=== PATIENT | male | born 1940 | race Caucasian/White ===

== ENCOUNTER 2018-10-12 10:20 | Outpatient (REF) | payer MEDICARE, SELFPAY ==
[2018-10-12 19:49] LABS: HCT 40.2 % (40.0-50.0); HGB 13.2 g/dL (13.5-17.5); Mean Corp. HGB Concentration 32.8 g/dL (32.0-36.0); Mean Corpuscular Hemoglobin 31.9 pg (27.0-33.0); Mean Corpuscular Volume 97.1 fL (80-95); Mean Platelet Volume 11.8 fL (8.0-11.0); Platelet Count 175 x1000/uL (130-400); RBC 4.14 m/cumm (4.50-6.00); RBC Distribution Width 13.1 % (11.8-14.1)
[2018-10-12 20:07] LABS: ALT 18 U/L (12-78); AST 22 U/L (15-37); Albumin 3.6 g/dL (3.4-5.0); Alkaline Phosphatase 70 U/L (46-116); Anion Gap 10.7 mmol/L (3-11); BUN 23 mg/dL (7-18); Bilirubin, Total 0.4 mg/dL (0.2-1.0); CO2 25.3 mmol/L (21.0-32.0); CREATININE 0.82 mg/dL (0.70-1.30); Calcium 9.6 mg/dL (8.5-10.1); Chloride 103 mmol/L (98-107); Glucose 116 mg/dL (70-100); Potassium 4.5 mmol/L (3.5-5.1); Sodium 139 mmol/L (136-145); Total Protein 7.1 g/dL (6.4-8.2)
== END 2018-10-12 10:40 ==
LOC: NCHCN 10:20
PROVIDERS: PCP Family Medicine; Visit Provider Family Medicine
DX: I48.91 Unspecified atrial fibrillation (principal); D64.9 Anemia, unspecified; I10 Essential (primary) hypertension; E78.5 Hyperlipidemia, unspecified
CPT/HCPCS: 80053; 85027

== ENCOUNTER 2018-11-27 14:21 | Emergency (ER) | payer MEDICARE, SELFPAY ==
[2018-11-27 14:24] VITALS: BP 170/90; PULSE 66; RESP 18; TEMP 36.3; O2SAT 98
--- NOTE | 2018-11-27 15:13 | DI.RAD_ITS ---
SYMPTOM/DIAGNOSIS: FELL, RIB AND CHEST PAIN, ELBOW PAIN PA AND LATERAL CHEST: Comparison is made with 11/15/17. The heart is enlarged. There is a hiatal hernia present. The pulmonary vasculature is within normal limits. There does appear to be plate atelectasis in the left lung base. No gross effusions or pneumothoraces are identified. No definite rib fractures are seen. Degenerative changes are seen in the spine. IMPRESSION: Atelectasis in the left lung base. Cardiomegaly. LEFT ELBOW: Multiple views. No definite acute fracture or dislocation is identified. There is a tiny osseous fragment seen at the olecranon which may represent calcified tendinitis or an old avulsed fracture fragment. There is an osteophyte seen at the coronoid process. There is a joint effusion and an occult fracture cannot be excluded. IMPRESSION: No definite acute fracture or dislocation. Joint effusion. Occult fracture cannot be excluded. Follow up as clinically appropriate.
--- NOTE | 2018-11-27 15:15 | W.ED.GENAD ---
Discharge Plan Disposition Patient Disposition: HOME Discharge Details Chief Complaint: Orthopedic Clinical Impression: Closed fracture of radial head, Renal cyst, Aortic aneurysm, Contusion of lung, Opacity of lung on imaging study Primary Care Provider: Oralia King V ED Provider: Javan Kay Home Meds and New Rx's Prescriptions: New lidocaine 5 % adhesive patch,medicated 1 patch TP DAILY PRN (Reason: rib pain) Qty: 15 RF: 0 Continued simvastatin [Zocor] 40 MG tablet 40 mg PO HS Qty: 1 RF: 0 triamcinolone acetonide 80 GM ointment 80 gm Topical TID RF: 0 losartan [Cozaar] 100 MG tablet 100 mg PO DAILY Qty: 1 RF: 0 albuterol sulfate 8.5 GM HFA aerosol inhaler 8.5 gm Inhalation Q4H PRN PRNQty: 1 RF: 1 potassium chloride [Klor-Con M20] 20 MEQ tablet,ER particles/crystals 20 meq PO DAILY Qty: 30 RF: 0 omeprazole 40 MG capsule,delayed release(DR/EC) 40 mg PO BID RF: 0 No Action Eliquis 5 MG tablet 5 mg PO BID Qty: 60 RF: 0 Discharge Instructions Instructions: Elbow Fracture in Adults (ED), Abdominal Aortic Aneurysm (GEN), Pulmonary Contusion (ED) Additional Instructions: Use incentive spirometer every 2 hours while awake for the next 1 week. Should you develop fever and/or cough, please return to the ER or see your doctor immediately. Please follow-up with your doctor regarding abnormalities seen on CT including pulmonary opacity and AAA. Hold eliquis dosing tonight. You can start taking eliquis again tomorrow. Return to the ER for any worsening or new concerning symptoms. Referrals: Oralia King MD [Primary Care Provider] - Feroz Gomez MD [ [facility] STAFF PHYSICIAN] - Medical Decision Making 15:22 --78-year-old male here after mechanical slip and fall on ice with injury to his left elbow and left anterior lateral ribs. Tender to palpation lateral elbow and over fourth rib anterolaterally. Saturating well and no respiratory distress. Concern for elbow fracture vs contusion. Concern for rib fracture vs contusion. Plan to xray. Lidocaine patch and tylenol administered for pain. 16:19 --chest x-ray interpreted by radiology: IMPRESSION: 1. Opacity in the left costophrenic angle and retrocardiac region may represent atelectasis or pneumonia or contusion. 2. There may be mild left pleural effusion. Consider pulmonary contusion versus rib fracture and vascular injury, patient is on Eliquis, plan to CT chest. Elbow x-ray interpreted by radiology: Impression: 1. Mild anterior joint effusion. 2. There may be nondisplaced intra-articular fracture of the radial head. 18:38 -- CT of chest intpereted by radiology: IMPRESSION: 1. Mild opacities in the lower lobes may represent minimal atelectasis or pneumonia or contusion. 2. Infrarenal abdominal aortic aneurysm unruptured 3.1 x 2.9 cm. 3. 2.1 x 1.4 cm Pleural-based opacity in the medial aspect of the right lower lobe (2:39) may represent atelectasis or pneumonia or tumor. 4. Mild compression fracture of unknown age T2. Results were reviewed with the patient. I again questioned patient about infectious symptoms recent and he denies recent cough or fever. Spoke with Dr. Gomez who recommends sling, no weight bearing, and follow-up. Plan to sling. Follow-up ortho as well as follow-up with primary care physician regarding findings on CT chest. HPI General Mode of arrival: ambulatory. Date/Time Provider Initiated Documentation: 11/27/18 14:30. Information obtained by: patient and family. 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 Patient notes he landed on his left side. He has pain in left lateral ribs over fourth rib. Pain is moderate and worse on deep inspiration and on palpation. No associated shortness of breath. Patient also notes that he injured his left elbow during the fall and has pain in his elbow at its worse when he moves his elbow. Patient denies head trauma. No neck injury or pain Patient does state that he has minimal pain in his left anterior lateral pelvis but does not believe he sustained significant injury in that area. Related Data Home Medications Medication Instructions Recorded Confirmed losartan [Cozaar] 100 mg PO DAILY #1 tab-cap 05/26/13 11/27/18 simvastatin [Zocor] 40 mg PO HS #1 05/26/13 11/27/18 triamcinolone acetonide 80 gm TOPICAL TID script 05/26/13 11/27/18 albuterol sulfate 8.5 gm INHALATION Q4H PRN PRN #1 03/14/15 11/27/18 [email or web address] Eliquis 5 mg PO BID #60 tab 11/17/17 11/27/18 potassium chloride [Klor-Con M20] 20 meq PO DAILY #30 tabcr 11/17/17 11/27/18 omeprazole 40 mg PO BID 12/25/17 11/27/18 lidocaine 1 patch TP DAILY PRN #15 each 11/27/18 Previous Rx's Medication Instructions Recorded albuterol sulfate 8.5 gm INHALATION Q4H PRN PRN #1 03/14/15 [email or web address] Eliquis 5 mg PO BID #60 tab 11/17/17 potassium chloride [Klor-Con M20] 20 meq PO DAILY #30 tabcr 11/17/17 lidocaine 1 patch TP DAILY PRN #15 each 11/27/18 Allergies Allergy/AdvReac Type Severity Reaction Status Date / Time lactose Allergy Swelling/Ed Unverified 11/27/18 14:24 juan pablo General Stated Complaint: Orthopedic KATHERINE: 4 Review of Systems Cardiovascular Reports as per HPI and Denies dyspnea Respiratory Reports as per HPI and Denies dyspnea Gastrointestinal Denies abdominal pain Musculoskeletal Reports as per HPI PFSH Medical History Benign hypertension Deaf Epiglottitis Hypercholesterolemia Peripheral vascular disease occluded carotid artery Surgical History ORIF of supercondylar fx of the R femur (05/25/88) Right carotid endarterectomy ear surgery removal of compression screw and side plate from right femur (09/16/91) Social History Smoking/Tobacco Use Status: Never Alcohol Intake: never Drug use: Never Substance use type: does not use Do you feel safe at home: Yes Do you feel safe in your relationship?: Yes Exam Const General: cooperative and no acute distress HENMT Head: normocephalic and atraumatic Mouth: moist mucous membranes Neck Neck: full ROM, trachea midline, supple and nontender Chest Chest: no crepitus, localized rib tenderness with anteroposterior compression (left 4th lateral) and tenderness rib (4th and 5th left) Resp Auscultation: clear to auscultation bilaterally, no rales, no rhonchi and no wheezes Cardio Jugular venous pressure: no JVD Rate: regular rate and not tachycardic Rhythm: regular rhythm Pulses: radial pulses present on the left 2+ GI Palpation: soft, not firm, no guarding, no masses, not rigid and nontender Back/Spine/Pelvis Cervical Spine: No cervical spinal tenderness Pelvis: no pain with anterior-posterior compression and no pain with lateral compression Skin General skin exam: no rashes or lesions noted Neuro General: alert, awake and tone normal Motor: muscle tone normal throughout Sensory Exam: no sensory deficits noted (distal LUE) Extrem General: no edema Left upper extremity: elbow/forearm Details: tenderness Location: of the radial head and abnormal ROM Details: pain with active ROM Details: with extension and with supination; no swelling Left lower extremity: hip/thigh Details: normal ROM and abnormal ROM; no tenderness Psych Appearance: grossly normal Course Vital Signs Temperature 36.3 C L 11/27/18 14:24 Pulse 66 11/27/18 14:24 Respiratory Rate 18 11/27/18 14:24 Blood Pressure 170/90 H 11/27/18 14:24 Pulse Oximetry 98 11/27/18 14:24 Temperature 36.3 C L 11/27/18 14:24 Temperature Source Temporal Artery Scan 11/27/18 14:24 Pulse 66 11/27/18 14:24 Respiratory Rate 18 11/27/18 14:24 Respiratory Effort 11/27/18 14:24 Blood Pressure 170/90 H 11/27/18 14:24 Pulse Oximetry 98 11/27/18 14:24 Oxygen Delivery Method Room Air 11/27/18 14:24 Oxygen Flow Rate 0 11/27/18 14:24 Pain Level 1 11/27/18 14:24
[2018-11-27] MEDS: Acetaminophen 325 MG TAB 650 MG PO (15:26)
[2018-11-27] MEDS: Lidocaine 5% Patch 1 PATCH (15:27)
--- NOTE | 2018-11-27 16:08 | DI.VRAD_ITS ---
EXAM: XR Chest, 2 Views EXAM DATE/TIME: 11/27/2018 3:15 PM CLINICAL HISTORY: 78 years old, male; Signs and symptoms; Other: Fall, left ant lateral cp 4-5th ribs TECHNIQUE: XR of the chest, 2 views. COMPARISON: CR CHEST 2 VIEWS PA,LAT 11/15/2017 2:29 PM FINDINGS: Lungs: Opacity in the left costophrenic angle and retrocardiac region may represent atelectasis or pneumonia or contusion. Pleural space: There may be mild left pleural effusion. Heart/Mediastinum: Cardiomegaly Vasculature: Tortuous aorta Bones/joints: No definite rib fracture. IMPRESSION: 1. Opacity in the left costophrenic angle and retrocardiac region may represent atelectasis or pneumonia or contusion. 2. There may be mild left pleural effusion. Dictated and Authenticated by: Pb Guadalupe MD. Ordering:ROGE Edouard MD
--- NOTE | 2018-11-27 16:10 | DI.VRAD_ITS ---
EXAM: XR Left Elbow Complete, 3 or more Views EXAM DATE/TIME: 11/27/2018 3:15 PM CLINICAL HISTORY: 78 years old, male; Signs and symptoms; Other: Fall, pain TECHNIQUE: XR Left elbow, 3 or more views. COMPARISON: No relevant prior studies available. FINDINGS: Bones/joints: Well-corticated old avulsion fracture adjacent to the olecranon Osteophyte formation on the coronoid process Mild anterior joint effusion. There may be nondisplaced intra-articular fracture of the radial head. Soft tissues: Normal. IMPRESSION: 1. Mild anterior joint effusion. 2. There may be nondisplaced intra-articular fracture of the radial head. Dictated and Authenticated by: Pb Guadalupe MD. Ordering:ROGE Edouard MD
[2018-11-27 16:33] LABS: Abs Immature Grans 0.05 k/cumm (0.0-0.09); Absolute Basophil Count 0.01 k/cumm (0.0-0.2); Absolute Monocyte Count 0.47 k/cumm (0.11-0.7); Basophils % 0.1; Eosinophils % 0.1; HCT 43.6 % (40.0-50.0); HGB 14.3 g/dL (13.5-17.5); Immature Grans % 0.3; Lymphocytes % 5.6; Mean Corp. HGB Concentration 32.8 g/dL (32.0-36.0); Mean Corpuscular Hemoglobin 31.8 pg (27.0-33.0); Mean Corpuscular Volume 97.1 fL (80-95); Mean Platelet Volume 10.3 fL (8.0-11.0); Monocytes % 3.3; Neutrophils % 90.6; Platelet Count 172 x1000/uL (130-400); RBC 4.49 m/cumm (4.50-6.00); RBC Distribution Width 12.8 % (11.8-14.1); White Blood Cell Count 14.34 k/cumm (4.4-10.8)
[2018-11-27 16:34] LABS: Absolute Eosinophil Count 0.01 k/cumm (0.0-0.7); Absolute Neutrophil Count 12.99 k/cumm (1.2-6.7)
[2018-11-27 16:45] LABS: Anion Gap 8.3 mmol/L (3-11); BUN 24 mg/dL (7-18); CO2 28.7 mmol/L (21.0-32.0); CREATININE 0.85 mg/dL (0.70-1.30); Calcium 9.4 mg/dL (8.5-10.1); Chloride 100 mmol/L (98-107); Glucose 122 mg/dL (70-100); Sodium 137 mmol/L (136-145)
[2018-11-27] MEDS: Omnipaque 350 MG/ML 100 ML BTL IJ (17:11)
[2018-11-27] MEDS: Normal Saline Flush 10 ML SYR IVP (17:11)
--- NOTE | 2018-11-27 17:15 | DI.CT_ITS ---
SYMPTOM/DIAGNOSIS: FELL, LT HCEST PAIN, OPACITY ON XR CHEST CT: CT scan of the chest was performed following the uneventful administration of intravenous contrast material. Comparison is chest xray from the same day. The thoracic aorta shows atherosclerosis but is intact. Heart size is upper limits of normal to mildly enlarged. Coronary artery calcifications are present. There is no significant pericardial effusion. No significant thoracic adenopathy is seen. No pleural effusion or pneumothorax is identified. There is a moderate sized hiatal hernia. There are infiltrates seen in the lung bases bilaterally. These may represent atelectasis or pneumonia. There is a focal opacity in the medial aspect of the right lower lobe. This may represent atelectasis or pneumonia. A mass cannot be excluded. Follow up as appropriate. There are nondisplaced fractures involving the lateral aspects of the left fourth, fifth and sixth ribs. There are calcified pleural plaques present which may reflect prior asbestos exposure. In the upper abdomen, there is a 4 cm. right renal cyst. There is a 3.1 by 2.9 cm. infrarenal abdominal aortic aneurysm. There is compression deforming of the superior endplate of T 2. Note is made of gynecomastia on the left. IMPRESSION: 1. Nondisplaced fractures involving the left fourth, fifth and sixth ribs laterally. 2. No evidence of a pneumothorax or pleural effusion. 3. Bilateral opacities in the lung bases which may represent atelectasis or pneumonia. 4. 2.1 by 1.4 cm. pleural based opacity in the medial aspect of the right lower lobe. This may represent atelectasis or pneumonia. Neoplasm cannot be excluded. Follow up as appropriate. 5. 3.1 by 2.9 cm. infrarenal abdominal aortic aneurysm. 6. T 2 compression fracture deformity which is indeterminate in age.
[2018-11-27 17:25] VITALS: BP 126/68; PULSE 69; TEMP 37.2; O2SAT 99
--- NOTE | 2018-11-27 17:27 | DI.VRAD_ITS ---
EXAM: CT Chest With Contrast EXAM DATE/TIME: 11/27/2018 4:19 PM CLINICAL HISTORY: 78 years old, male; Signs and symptoms; Other: Fall, left chest pain, opacity on cxr, on elliquis TECHNIQUE: Axial computed tomography images of the chest with intravenous contrast. All CT scans at this facility use at least one of these dose optimization techniques: automated exposure control; mA and/or kV adjustment per patient size (includes targeted exams where dose is matched to clinical indication); or iterative reconstruction. Coronal and sagittal reformatted images were created and reviewed. CONTRAST: Contrast Material: 70 ml of Omnipaque 350; Contrast Route: IV COMPARISON: CT CHEST FOR PULMONARY EMBOLUS 01/20/2016 7:19 PM FINDINGS: Lungs: Mild opacities in the lower lobes may represent minimal atelectasis or pneumonia or contusion. 2.1 x 1.4 cm Pleural-based opacity in the medial aspect of the right lower lobe (2:39) may represent atelectasis or pneumonia or tumor. Pleural space: Calcified pleural plaques may represent exposure to asbestos Heart: Coronary artery calcifications may indicate coronary artery disease Mediastinum: Moderate hiatal hernia Aorta: Infrarenal abdominal aortic aneurysm unruptured 3.1 x 2.9 cm. Lymph nodes: Unremarkable. No enlarged lymph nodes. Bones/joints: Mild compression fracture of unknown age T2. Soft tissues: Unremarkable. Kidneys and ureters: 4 cm cyst in the right kidney. Smaller cysts in the left kidney. IMPRESSION: 1. Mild opacities in the lower lobes may represent minimal atelectasis or pneumonia or contusion. 2. Infrarenal abdominal aortic aneurysm unruptured 3.1 x 2.9 cm. 3. 2.1 x 1.4 cm Pleural-based opacity in the medial aspect of the right lower lobe (2:39) may represent atelectasis or pneumonia or tumor. 4. Mild compression fracture of unknown age T2. Dictated and Authenticated by: Pb Guadalupe MD. Ordering:ROGE Edouard MD
[2018-11-27 19:04] VITALS: BP 146/70; PULSE 69; RESP 18; TEMP 37.2; O2SAT 99
--- NOTE | 2018-11-28 20:40 | W.ED.FU ---
Follow Up Plan: Received notice at approximately 8:30 PM Thursday night that radiology over read revealed left-sided fourth, fifth, sixth rib fractures. Called and patient's family stated he is doing well. They have plan follow-up in orthopedic clinic.
== END 2018-11-27 19:07 | disposition home or self-care (01) ==
PROVIDERS: Emergency Provider Student in an Organized Health Care Education/Training Program; PCP Family Medicine
DX: S52.122A Displaced fracture of head of left radius, initial encounter for closed fracture (principal); S27.321A Contusion of lung, unilateral, initial encounter; R91.8 Other nonspecific abnormal finding of lung field; I71.4 Abdominal aortic aneurysm, without rupture; N28.1 Cyst of kidney, acquired; I48.91 Unspecified atrial fibrillation; Z79.01 Long term (current) use of anticoagulants; W00.0XXA Fall on same level due to ice and snow, initial encounter
CPT/HCPCS: 36415; 80048; 99285; 71046; 71260; 73080; 85025; J3490; L3650

== ENCOUNTER 2020-08-22 16:02 | Inpatient (IN) | payer MEDICARE, SELFPAY ==
--- NOTE | 2020-08-22 16:15 | DI.RAD_ITS ---
EXAM: XR HIP LT COMPLETE AP PELVIS CLINICAL HISTORY: fall/pain. TECHNIQUE: 2D digital imaging was performed. COMPARISON: CR RIGHT HIP COMPLETE from 09/12/2012 FINDINGS: There is a mildly displaced fracture of the left femoral neck. No obvious fracture in the opposite-r ight hip. No prominent degenerative changes. No other pelvic fractures. IMPRESSION: Left femoral neck fracture. DATA REPOSITORY: RADIATION DOSE DELIVERED:
[2020-08-22 16:23] VITALS: BP 165/79; PULSE 61; TEMP 36.1; O2SAT 98
--- NOTE | 2020-08-22 16:32 | W.ED.GENAD ---
Discharge Plan Disposition Patient Disposition: [facility] INPATIENT Condition: Serious Discharge Details Clinical Impression: Fracture of femoral neck, left Primary Care Provider: Oralia King V ED Provider: Kelvin Shaffer Home Meds and New Rx's Prescriptions: No Action simvastatin [Zocor] 40 MG tablet 40 mg PO HS Qty: 1 RF: 0 triamcinolone acetonide 80 GM ointment 30 gm Topical TID PRNRF: 0 Eliquis 5 MG tablet 5 mg PO BID Qty: 60 RF: 0 omeprazole 40 MG capsule,delayed release(DR/EC) 40 mg PO BID RF: 0 ipratropium-albuterol 0.5 mg-3 mg(2.5 mg base)/3 mL Solution For Nebulization 3 ml INHALATION QID PRNRF: 0 triamcinolone acetonide [Aristocort] 0.1 % Ointment 1 applic TOPICAL TID RF: 0 losartan 100 mg Tablet 100 mg PO DAILY RF: 0 vitamin B complex [Vitamins B Complex] Capsule 1 cap PO DAILY RF: 0 potassium chloride [Klor-Con M20] 20 MEQ tablet,ER particles/crystals 10 meq PO DAILY RF: 0 albuterol sulfate [Ventolin HFA] 90 mcg/actuation Hfa Aerosol Inhaler See Rx Instructions .ROUTE .COMPLEX PRNRF: 0 Medical Decision Making 80-year-old gentleman, DNR, DNI, deaf-mute, atrial fibrillation, anticoagulated, presents with his POA after a fall that was mechanical in nature. Only complaint at this time is that of left hip pain. Patient appears well, nontoxic, no obvious head injury. Discussed with patient and POA that we certainly need to get an x-ray of the left hip and pelvis for further evaluation but given his fall, on anticoagulation, I do recommend a CT of the head. They are very adamant that he did not strike his head, no headache, LOC, etc. Did not want to move forward with a head CT. They do understand the risks of not obtaining head CT. X-ray of left hip read by me as a impacted fracture of the left femur neck. I was able to talk with our certified technician specialist and while the patient is at x-ray obtaine a 1 view chest x-ray, left femur, and head CT. Patient and POA agreeable to the studies now. When the patient returns from radiology department will obtain IV access, obtain labs, EKG, give IV pain medication, and discuss need for admission and surgery. I was able to discuss the case with Dr. Blancas, orthopedics. He plans to perform surgery on Thursday, would like to hold Eliquis or aspirin, and he will see the patient tomorrow morning. He recommends a admission to our hospitalist team with a orthopedic consultation I then discussed the case with our hospitalist, Dr. Mclean. He personally saw the patient here in the ER and is agreeable to admission. Medical Records Medical records reviewed: Yes I reviewed the patient's medical records. Imaging Data Radiologic Study: Attestation: I personally reviewed and interpreted this imaging study as follows: Imaging: X-Ray Radiologist's impression: X-ray of chest, read by radiology as cardiomegaly with vascular congestion. Radiologic Study #2: Attestation: I personally reviewed and interpreted this imaging study as follows: Imaging: X-Ray Radiologist's impression: X-ray of the left hip, pelvis, left femur read as impacted fracture of the neck of the left femur. Radiologic Study #3: Attestation: I personally reviewed and interpreted this imaging study as follows: Imaging: CT Scan Radiologist's impression: CT head read by radiology as no acute findings. Findings suggestive of chronic white matter small vessel ischemic change. Lab Data Lab results reviewed: Yes I reviewed the patient's lab results. Lab results narrative: Laboratory Tests Range/Units 08/22/20 08/22/20 18:30 18:30 WBC (4.4-10.8) 10^3/uL 13.91 H RBC (4.36-5.78) 10^6/uL 4.30 L Hgb (13.5-17.5) g/dL 13.5 Hct (40.0-50.0) % 41.6 MCV (80-95) fL 96.7 H MCH (27.0-33.0) pg 31.4 MCHC (32.0-36.0) % 32.5 RDW (11.8-14.1) % 12.2 Plt Count (130-400) 10^3/uL 184 MPV (8.0-11.0) fL 10.9 Immature Gran % 0.4 Neutrophils % 89.9 Lymphocytes % 6.3 Monocytes % 2.9 Eosinophils % 0.3 Basophils % 0.2 Nucleated RBC % % 0 Absolute Neutrophils (1.2-6.7) 10^3/uL 12.51 H Absolute Lymphocytes (1.2-3.4) 10^3/uL 0.88 L Absolute Monocytes (0.1-0.8) 10^3/uL 0.40 Absolute Eosinophils (0.0-0.7) 10^3/uL 0.04 Absolute Basophils (0.0-0.2) 10^3/uL 0.03 PT (9.3-11.0) sec 10.9 INR (0.9-1.1) 1.1 APTT (21.0-27.5) sec 22.1 ECG Data Attestation: I personally reviewed and interpreted this ECG (s) as follows: Interpretation: Please see official report by Dr. Bearden. Question of atrial fibrillation, ventricular of 65. Right bundle branch block present HPI General Mode of arrival: wheelchair. Date/Time Provider Initiated Documentation: 08/22/20 16:10. Limitations to Documentation: other (Deaf-mute). Information obtained by: patient (Tomas Juárez, RAJ). HPI Narrative: This is an 80-year-old gentleman with past medical history of atrial fibrillation, anticoagulated, hypertension, PVD, who is deaf-mute, presenting with his POA Tomas Juárez. Patient is a DNR-DNI. Director Regulatory Affairs services were offered and declined. Patient lives at home at home alone and typically ambulates without assistance. Apparently he was on the first rung of a small stepladder, his feet got tangled, and he fell injuring his left hip. Initially the pain was severe and he was unable to get up on his own. Now the pain is only moderate but worse with movement. He denies striking his head or any other injuries. Denies headache, LOC, neck pain, chest pain, any symptoms prior to the fall. Has not taken any medication for his symptoms. Related Data Home Medications Medication Instructions Recorded Confirmed simvastatin [Zocor] 40 mg PO HS #1 05/26/13 08/22/20 triamcinolone acetonide 30 gm TOPICAL TID PRN script 05/26/13 08/22/20 Eliquis 5 mg PO BID #60 tab 11/17/17 08/22/20 omeprazole 40 mg PO BID 12/25/17 08/22/20 albuterol sulfate [Ventolin HFA] See Rx Instructions .ROUTE 08/22/20 08/22/20 .COMPLEX PRN ipratropium-albuterol 3 ml INHALATION QID PRN 08/22/20 08/22/20 losartan 100 mg PO DAILY 08/22/20 08/22/20 potassium chloride [Klor-Con M20] 10 meq PO DAILY 08/22/20 08/22/20 triamcinolone acetonide 1 applic TOPICAL TID 08/22/20 08/22/20 [Aristocort] vitamin B complex [Vitamins B 1 cap PO DAILY 08/22/20 08/22/20 Complex] Previous Rx's Medication Instructions Recorded Eliquis 5 mg PO BID #60 tab 11/17/17 Allergies Allergy/AdvReac Type Severity Reaction Status Date / Time lactose Allergy Swelling/Ed Unverified 08/22/20 18:33 juan pablo General Stated Complaint: Orthopedic KATHERINE: 3 Review of Systems Constitutional Constitutional: Denies fatigue and Denies headache(s) ENT Ears, Nose, Mouth, and Throat: Denies headache(s) and Denies neck pain Cardiovascular Cardiovascular: Denies chest pain and Denies dyspnea Respiratory Respiratory: Denies dyspnea Gastrointestinal Gastrointestinal: Denies abdominal pain, Denies nausea and Denies vomiting Musculoskeletal Musculoskeletal: Denies back pain, Reports arthralgias and Denies neck pain Integumentary/Breasts Skin/Breast: Denies erythema Neurologic Neurologic: Denies headache(s) Endocrine Endocrine: Denies fatigue Hematologic/Lymphatic Hematologic/Lymphatic: Reports easy bleeding and Reports easy bruising [facility] Medical History (Updated 08/22/20 @ 18:38 by Adrian Mclean MD) Benign hypertension Deaf Epiglottitis Hypercholesterolemia occluded carotid artery Peripheral vascular disease Surgical History ear surgery from records, left or right not noted, no date.HE ORIF of supercondylar fx of the R femur (05/25/88) removal of compression screw and side plate from right femur (09/16/91) Right carotid endarterectomy from records, no date.HE Social History Smoking/Tobacco Use Status: Never Smoking risk assessment performed?: Yes Alcohol Intake: never Drug use: Never Substance use type: does not use Do you feel safe at home: Yes Do you feel safe in your relationship?: Yes Exam Const General: cooperative, healthy appearing and no acute distress Orientation: alert and awake [facility] Head: normal to inspection, normocephalic and atraumatic Face and sinus: normal facial exam Mouth: moist mucous membranes Eyes General: appearance normal, both eyes and all related structures Conjunctivae: conjunctivae normal Sclera: sclerae normal EOM: EOM intact bilaterally Neck Neck: normal visual inspection, full ROM, trachea midline, supple and nontender Resp Effort & Inspection: normal respiratory effort and able to speak in complete sentences Auscultation: clear to auscultation bilaterally Cardio Rate: regular rate Rhythm: regular rhythm GI Inspection: abnormal to inspection Palpation: soft and nontender Back/Spine/Pelvis Back: No back tenderness Skin General skin exam: no rashes or lesions noted Neuro General: patient alert, patient awake, moves all extremities and no focal motor deficits Cognition: normal cognition Motor: muscle tone normal throughout Sensory Exam: no sensory deficits noted Extrem Right upper extremity: normal to inspection, full ROM and normal capillary refill Left upper extremity: normal to inspection, full ROM and normal capillary refill Right lower extremity: normal to inspection, full ROM and normal capillary refill Left lower extremity: hip/thigh Details: tenderness (Lateral hip), abnormal ROM (Decreased hip ROM secondary to pain) and ecchymosis (Mild, lateral aspect); no swelling Psych Appearance: grossly normal Mental Status: mental status grossly normal Course Vital Signs Vital signs: Vital Signs Temperature 36.1 C L 08/22/20 16:23 Pulse 61 08/22/20 16:23 Blood Pressure 165/79 H 08/22/20 16:23 Pulse Oximetry 98 08/22/20 16:23 Temperature 36.1 C L 08/22/20 16:23 Temperature Source Temporal Artery Scan 08/22/20 16:23 Pulse 61 08/22/20 16:23 Blood Pressure 165/79 H 08/22/20 16:23 Blood Pressure Position Sitting 08/22/20 16:23 Pulse Oximetry 98 08/22/20 16:23 Oxygen Delivery Method Room Air 08/22/20 16:23 Oxygen Flow Rate 0 08/22/20 16:23
--- NOTE | 2020-08-22 17:00 | DI.RAD_ITS ---
EXAM: XR FEMUR LT CLINICAL HISTORY: hip fx. TECHNIQUE: 2D digital imaging was performed. COMPARISON: No exams were available for comparison FINDINGS: There is a fracture of the lower neck of the left femur. Minimal displacement. No other fractures i dentified in the femur. Vascular calcification incidentally noted. IMPRESSION: Femoral neck fracture left hip. DATA REPOSITORY: RADIATION DOSE DELIVERED:
--- NOTE | 2020-08-22 17:00 | DI.RAD_ITS ---
EXAM: XR CHEST 1V IN DI DEPT CLINICAL HISTORY: pre op. TECHNIQUE: 2D digital imaging was performed. COMPARISON: CR XR CHEST 2V PA LATERAL from 11/27/2018 FINDINGS: Cardiomegaly again noted. Retrocardiac density also noted which is probably an hiatal hernia. No airspace pulmonary edema. No Evy B lines. No pleural effusions. However, there is addition density in the right hilar-suprahilar region. This may be exaggerated by the portable supine technique. However cannot exclude infiltrate or mass at this time. IMPRESSION: Cardiomegaly. No pulmonary edema. No pleural effusions. Possible right suprahilar mass or infiltra te versus is exaggeration by portable supine technique. Recommend nonportable PA and lateral views w hen clinically possible. Report called by myself to ER provider 08/23/2020 8:25 a.m. DATA REPOSITORY: RADIATION DOSE DELIVERED:
--- NOTE | 2020-08-22 17:00 | DI.CT_ITS ---
EXAM: CT HEAD WO CLINICAL HISTORY: fall, anticoagulated, hip fx. TECHNIQUE: Imaging Protocol: Axial computed tomography images with coronal and sagittal reformatted images were created and reviewed COMPARISON: No exams were available for comparison FINDINGS: No skull fractures evident. Circumferential mucosal disease is noted in the right maxillary sinus a nd there is some opacification of ipsilateral ethmoidal air cells. Also right sphenoid sinus. Right frontal sinus is not developed. Left frontal sinus is clear. Mastoid air cells are clear. There is no evidence of intracranial hemorrhage, mass effect, or shift of midline structures. There are no extra-axial fluid collections. The ventricles are not enlarged or shifted and there is no blo od within the ventricular system nor within the basal cisterns. Is some mild bilateral periventricular hypodensity consistent with chronic small vessel disease. The re is also a asymmetric area of subcortical hypodensity in the left parietal lobe and a calcification in the overlying cortex at this level. Findings probably related to prior ischemic event. Probably non recent. There is calcification noted within both vertebral arteries at the skull base, this in addition to heavy calcification within the intracavernous and supraclinoid internal carotid arteries. IMPRESSION: Chronic white matter small ischemic changes, somewhat asymmetric, as described above. Mild left jason etal encephalomalacia with small cortical calcification at this level also noted. Paranasal sinus findings predominately right side as described above. RADIATION DOSE DELIVERED: 752.97mGy.cm Total DLP DATA REPOSITORY: All CT scans at this facility are submitted to the National Radiology Data Registry (NRDR) Dose Index Registry (DIR) with the [employer] (A[employer]). RADIATION OPTIMIZATION: All CT scans at this facility use at least one of these dose optimization te chniques: automated exposure control; mA and/or kV adjustment per patient size (includes targeted exa ms where dose is matched to clinical indication); or iterative reconstruction.
--- NOTE | 2020-08-22 17:33 | DI.VRAD_ITS ---
PROCEDURE INFORMATION: Exam: XR Left Femur Exam date and time: 08/22/2020 5:20 PM Age: 80 years old Clinical indication: Pain; Hip; Left TECHNIQUE: Imaging protocol: XR Left femur. Views: 2 views. COMPARISON: CR LEFT KNEE LIMITED 1 OR 2 VIEWS 04/22/2016 11:09 AM FINDINGS: Bones/joints: Slightly impacted fracture of the neck of the femur. The bones are demineralized. 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 Soft tissues: Unremarkable. Intraperitoneal space: Surgical clips in the left pelvis. Vasculature: Very dense vascular calcifications. IMPRESSION: Impacted fracture of the neck of the left femur. Dictated and Authenticated by: Aida Garcia MD. Ordering:SHAVONNE Warren MD
--- NOTE | 2020-08-22 17:34 | DI.VRAD_ITS ---
PROCEDURE INFORMATION: Exam: XR Left Hip with Pelvis when Performed Exam date and time: 08/22/2020 4:29 PM Age: 80 years old Clinical indication: Patient HX: Left hip pain S/P fall. TECHNIQUE: Imaging protocol: XR Left hip with pelvis when performed. Views: 2 or 3 views. COMPARISON: No relevant prior studies available. FINDINGS: Bones/joints: Impacted fracture of the lower neck of the femur. The bones are demineralized. Mild degenerate arthritis in both hips. Soft tissues: Unremarkable. Intraperitoneal space: Surgical clips in left pelvis. Vasculature: Very dense vascular calcifications. IMPRESSION: Impacted acute appearing fracture of the lower neck of the left femur. Dictated and Authenticated by: Aida Garcia MD. Ordering:SHAVONNE Warren MD
--- NOTE | 2020-08-22 17:36 | DI.VRAD_ITS ---
PROCEDURE INFORMATION: Exam: XR Chest, 1 View Exam date and time: 08/22/2020 5:20 PM Age: 80 years old Clinical indication: Pre-operative exam; Cardiovascular screening and respiratory screening exam TECHNIQUE: Imaging protocol: XR of the chest Views: 1 view. COMPARISON: CT CHEST W 11/27/2018 5:01 PM FINDINGS: Lungs: Unremarkable. No consolidation. Pleural space: Unremarkable. No pleural effusion. No pneumothorax. Heart/Mediastinum: Cardiomegaly with vascular congestion. Esophageal hiatal hernia. Vasculature: Aortic calcifications. Bones/joints: Unremarkable. Other findings: Shallow inspiration. IMPRESSION: Cardiomegaly with vascular congestion. Dictated and Authenticated by: Aida Garcia MD. Ordering:SHAVONNE Warren MD
--- NOTE | 2020-08-22 17:43 | DI.VRAD_ITS ---
PROCEDURE INFORMATION: Exam: CT Head Without Contrast Exam date and time: 08/22/2020 5:24 PM Age: 80 years old Clinical indication: Other: Trauma, fall. TECHNIQUE: Imaging protocol: Computed tomography of the head without contrast. Radiation optimization: All CT scans at this facility use at least one of these dose optimization techniques: automated exposure control; mA and/or kV adjustment per patient size (includes targeted exams where dose is matched to clinical indication); or iterative reconstruction. COMPARISON: No relevant prior studies available. FINDINGS: Brain: Small focal area encephalomalacia posterior parietal lobe adjacent to a small cranial defect, likely due to old trauma or surgery. Areas of low-density in the periventricular white matter in a pattern most suggestive of chronic small vessel ischemic change. Cerebral ventricles: No ventriculomegaly. Bones/joints: The bones are demineralized. Paranasal sinuses: Fluid and membrane thickening in right maxillary , ethmoid and sphenoid sinuses. Mastoid air cells: Visualized mastoid air cells are well aerated. Vasculature: Vascular calcifications. Soft tissues: Unremarkable. IMPRESSION: 1. No acute findings. 2. Findings suggestive chronic white matter small vessel ischemic change. 3. Minimal focal parietal encephalomalacia 4. Fluid and membrane thickening in the right paranasal sinuses. Dictated and Authenticated by: Aida Garcia MD. Ordering:SHAVONNE Warren MD
--- NOTE | 2020-08-22 18:00 | RT.EKG_ITS ---
APPROVED REPORT Exam: Resting ECG Patient Location: E HR:65 bpm ECG Measurements Heart Rate 65 AXIS ME [id number] P [id number] QRSd 153 QRS -1 QT 473 T -8 QTc 492 Conclusion Atrial fibrillation...? atrial activity Right bundle branch block
--- NOTE | 2020-08-22 18:33 | HPE_ITS ---
Date of service: 08/22/20 Time of Service: 19:33 Assessment and Plan Assessment and plan (1) Hip fracture: Status: Acute Assessment and plan: Hip fracture secondary to mechanical fall. As above surgery deferred due to DOAC. Will hold DOAC, prn analgesics and await further Ortho input. Will update once labs and EKG in. Note that CXR shows mild vascular congestion. No h/o CHF and clinically this does not appear to be significant as patient otherwise appears euvolemic and is asymptomatic.. Would follow clinically for now, but will add on BNP. Consider ECHO if issues persist. Reviewed ADs with thermospray operator, indicates Full Code. History of Present Illness History of Present Illness Chief Complaint: hip pain Narrative: 80 male deaf mute, history obtained from thermospray operator and ER. Mechasnical fall off first rung ladder today, landing on left side. C/o pain. In ER femoral neck fx noted. Due to his being on DOAC (for AF) repair deferred x 48 hours. Admitted for further management. Feels well otherwise, labs and EKG all pending at this time. Review of Systems All systems reviewed & are unremarkable except as noted in HPI and below PFSH Medical History (Updated 08/22/20 @ 18:38 by Adrian Mclean MD) Benign hypertension Deaf Epiglottitis Hypercholesterolemia occluded carotid artery Peripheral vascular disease Surgical History ear surgery from records, left or right not noted, no date.HE ORIF of supercondylar fx of the R femur (05/25/88) removal of compression screw and side plate from right femur (09/16/91) Right carotid endarterectomy from records, no date.HE Social History Smoking/Tobacco Use Status: Never Smoking risk assessment performed?: Yes Alcohol Intake: never Drug use: Never Substance use type: does not use Do you feel safe at home: Yes Do you feel safe in your relationship?: Yes Meds Home Medications and Allergies Home Medications Medication Instructions Recorded Confirmed Type losartan [Cozaar] 100 mg PO DAILY #1 tab-cap 05/26/13 11/27/18 History simvastatin [Zocor] 40 mg PO HS #1 09/12/13 03/16/19 History triamcinolone acetonide 80 gm TOPICAL TID script 05/26/13 11/27/18 History albuterol sulfate 8.5 gm INHALATION Q4H PRN PRN #1 03/14/15 11/27/18 Rx hfa.aer.ad Eliquis 5 mg PO BID #60 tab 11/17/17 11/27/18 Rx potassium chloride [Klor-Con M20] 20 meq PO DAILY #30 tabcr 11/17/17 11/27/18 Rx omeprazole 40 mg PO BID 12/25/17 11/27/18 History lidocaine 1 patch TP DAILY PRN #15 each 11/27/18 Rx Allergies Allergy/AdvReac Type Severity Reaction Status Date / Time lactose Allergy Swelling/Ed Unverified 08/22/20 18:33 juan pablo Exam Narrative Exam Narrative: 165/79, 61, 36.1, 18, 98% RA. HEENT atraumatic; neck supple; lungs diminished but clear; griffin distant, irr/irr; abdomen soft and NT; extremities w/o edema, pulses 2+/=, LLE everted but not foreshortened Results Labs Result diagrams: 08/22/20 17:04 08/22/20 17:04 Last Vital Signs Temp 36.1 C L 08/22/20 16:23 Pulse 61 08/22/20 16:23 BP 165/79 H 08/22/20 16:23 Pulse Ox 98 08/22/20 16:23 COVID-19 Screening Have you, or household traveled for leisure in last 14 days?: No Had IN PERSON contact w/suspected or confirmed C-19 person: No
[2020-08-22 18:47] LABS: Abs Immature Grans 0.06 10^3/uL (0.0-0.06); Absolute Basophil Count 0.03 10^3/uL (0.0-0.2); Absolute Eosinophil Count 0.04 10^3/uL (0.0-0.7); Absolute Lymphocyte Count 0.88 10^3/uL (1.2-3.4); Absolute Neutrophil Count 12.51 10^3/uL (1.2-6.7); Basophils % 0.2; Eosinophils % 0.3; HCT 41.6 % (40.0-50.0); HGB 13.5 g/dL (13.5-17.5); Immature Grans % 0.4; Lymphocytes % 6.3; MCH 31.4 pg (27.0-33.0); MCHC 32.5 % (32.0-36.0); MCV 96.7 fL (80-95); MPV 10.9 fL (8.0-11.0); Monocytes % 2.9; Neutrophils % 89.9; Nucleated RBC 0 %; Platelet Count 184 10^3/uL (130-400); RDW 12.2 % (11.8-14.1); RDW-SD 43.8 fL; WBC 13.91 10^3/uL (4.4-10.8)
[2020-08-22 19:05] LABS: INR 1.1 (0.9-1.1); PTT Activated 22.1 sec (21.0-27.5); Prothrombin Time 10.9 sec (9.3-11.0)
[2020-08-22 19:31] VITALS: BP 144/88; PULSE 55; PULSE 68; RESP 16; O2SAT 99
[2020-08-22 19:32] VITALS: PULSE 70; RESP 15; O2SAT 99
[2020-08-22 19:40] VITALS: PULSE 75; RESP 19; O2SAT 100
[2020-08-22] MEDS: ACETAMINOPHEN 1,000 MG/100 ML BTL 400 MG (19:47)
[2020-08-22 19:50] VITALS: PULSE 73; RESP 17; O2SAT 99
[2020-08-22] MEDS: Lidocaine 2% Jelly 6 ML SYR (20:08)
[2020-08-22 20:13] LABS: ALT 21 U/L (16-63); AST 17 U/L (15-37); Albumin 3.8 g/dL (3.4-5.0); Alkaline Phosphatase 58 U/L (46-116); Anion Gap 6.8 mmol/L (3-11); BUN 20 mg/dL (7-18); Bilirubin, Total 0.5 mg/dL (0.2-1.0); CO2 28.2 mmol/L (21.0-32.0); CREATININE 1.01 mg/dL (0.70-1.30); Calcium 9.4 mg/dL (8.5-10.1); Chloride 104 mmol/L (98-107); Glucose 128 mg/dL (74-106); Sodium 139 mmol/L (136-145); Total Protein 7.5 g/dL (6.4-8.2)
[2020-08-22 20:21] LABS: NT-proBNP 2216 pg/mL (<300)
[2020-08-22 21:02] VITALS: BP 142/79; PULSE 72; RESP 18; TEMP 37.3; O2SAT 95
[2020-08-22] MEDS: Acetaminophen 325 MG TAB 650 MG PO (21:56)
[2020-08-22] MEDS: Normal Saline Flush 10 ML SYR IVP (23:58)
--- NOTE | 2020-08-23 | DI.US_ITS ---
APPROVED REPORT EXAM: Comprehensive 2D, Doppler, and color-flow Echocardiogram Patient Location: In-Patient Room/Bed: 215 Company Laborer: Marilynn Jade RDCS (AE) Indications: CHF, Evaluate LF function Other Information Study Quality: Adequate Conclusion Left Ventricle : The left ventricle is normal size. Left ventricular systolic function is mildly redu hasmukh. There is normal left ventricular wall thickness. There is global hypokinesis of the left ventric le. The left ventricular diastolic function is normal. LVEF is 40-45%. Right Ventricle : Right ventricle is mild to moderately dilated. The right ventricular systolic funct ion is normal. The RVSP is 34.3 mmHg. Atria : Left atrium is severely dilated. Right atrium is severely dilated. Aortic Valve : The Aortic valve is sclerotic. Aortic valve is trileaflet. There is no aortic valvular stenosis. No aortic regurgitation is present. Mitral Valve : Moderate mitral annular calcification. Mild mitral regurgitation. No evidence of ravi l valve stenosis. Great Vessels : The aortic root is normal in size. The ascending aorta is normal in size. Aortic arch is not well visualized. The IVC collapses <50% with inspiration. Please see remainder of study for further details. As compared to study from 11/17/2017, there is no significant change. Wall motion Left Ventricle The left ventricle is normal size. Left ventricular systolic function is mildly reduced. There is nor mal left ventricular wall thickness. There is global hypokinesis of the left ventricle. The left vent ricular diastolic function is normal. There is no ventricular septal defect visualized. LVEF is 40-45 %. Right Ventricle Right ventricle is mild to moderately dilated. The right ventricular systolic function is normal. The RVSP is 34.3 mmHg. Atria Left atrium is severely dilated. Right atrium is severely dilated. The interatrial septum is intact w ith no evidence for an atrial septal defect. Aortic Valve The Aortic valve is sclerotic. Aortic valve is trileaflet. There is no aortic valvular stenosis. No a ortic regurgitation is present. Mitral Valve Moderate mitral annular calcification. No evidence of mitral valve stenosis. Mild mitral regurgitatio n. Tricuspid Valve The tricuspid valve is normal in structure. There is no tricuspid valve stenosis. Mild tricuspid regu rgitation. Pulmonic Valve The pulmonary valve is normal in structure. There is no pulmonic valvular stenosis. There is no pulmo yovani valvular regurgitation. Great Vessels The aortic root is normal in size. The ascending aorta is normal in size. Aortic arch is not well vis ualized. The IVC collapses <50% with inspiration. Pericardium There is no pericardial effusion. 2D Dimensions IVSD d PLAX 1.02 cm M: 0.6-1.2 LV Vol A2C d MOD 119.0 mL LVPW d PLAX 1.04 cm M: 0.6 - 1.2 LV Vol A4C d MOD 114.9 mL LVID d PLAX 4.43 cm M: 4.2 - 5.8 LA vol/ BSA A2C s A-L 73.5 mL/m2 LVDs 3.40 cm M: 2.5 - 4.0 LA vol/ BSA A4C s A-L 66.2 mL/m2 Ao Root d 3.67 cm M: 3.1 - 3.7 LA Vol/ BSA Biplane s A-L 70.5 mL/m2 RA Area A4C 29.40 cm2 LA Area A4C s MOD 32.40 cm2 RA Vol/ BSA A4C s A-L 59.2 mL/m2 LA Area A2C s MOD 33.76 cm2 Ao Asc Diam d 3.24 cm M: 2.6 - 3.4 LV EF A4C MOD 44.5 % LV EF Teichholz 46.2 % LV EF A2C MOD 40.4 % LVEF (Desai's) 41.91 % M: 52 - 72 LV EF Biplane MOD 41.9 % LV Volume 90.77 mL M: 62 - 150 SV 49.04 mL LV Volume Index 50.14 mL/m2 M: 34 - 74 SV Index 27.04 mL/m2 LV Vol Biplane MOD 117.0 mL FS 22.85 % M-Mode TAPSE 1.51 cm (M/F) >1.7 LV Diastology MV E' medial 0.153 (>0.07 m/s) MV E Vmax 1.27 (0.4-1.3 m/s) LV E/e MED 8.25 (<14) MV E' lateral 0.112 (>0.1 m/s) LV E/e LAT 11.25 (<14) MV E/E' medial 8.28 MV E/E' lateral 11.25 Aortic Valve LVOT Area 3.30 cm2 AoV Area Vmax 1.80 cm2 LVOT Vmax 0.90 m/s AoV Area/ BSA (Vmax) 0.99 cm2/m2 LVOT Mean Roby. 0.56 m/s COURTNEY Mean Roby. 1.62 cm2 LVOT Peak Grad 3.2 mmHg COURTNEY Mean Roby. Index 0.89 cm2/m2 LVOT Mean Grad 1.5 mmHg LVOT VTI 0.174 m LVOT Diam s 2.00 cm AoV Vmax 1.65 m/s Velocity Ratio 0.54 AoV Mean Roby. 1.15 m/s AoV Peak Grad 10.9 mmHg LVOT SV 57.42 mL AoV Mean Grad 5.9 mmHg AoV VTI 0.284 m AoV Area VTI 2.02 cm2 AoV Area/ BSA (VTI) 1.12 cm/m2 Mitral Valve MV DT 274 (160-240 msec) MV PHT 79 msec MV Area PHT 2.77 cm2 MV VTI 0.295 m MV VTI Annulus 0.287 m MV Area VTI 1.89 (4.0-6.0 cm2) Pulmonary Valve PV Vmax 0.74 (0.5-1.5 m/s) RVOT Peak Gr. 1.64 mmHg PV Peak Grad 2.2 mmHg RVOT Mean Gr. 0.75 mmHg PV Mean Grad 1.2 mmHg RVOT VTI 0.131 m PV VTI 0.124 m RVOT Vmax 0.64 m/s Tricuspid Valve TR Peak Grad 26.2 mmHg TR Vmax 2.56 m/s RA Pressure 8.00 mmHg RVSP (TR) 34.3 mmHg
--- NOTE | 2020-08-23 | DI.CT_ITS ---
EXAM: CT LOWER EXTREMITY LT WO CLINICAL HISTORY: Hip fracture. TECHNIQUE: Imaging Protocol: Axial computed tomography images with coronal and sagittal reformatted images were created and reviewed. CONTRAST MATERIAL: Intravenous: None COMPARISON: X-rays from earlier today reviewed FINDINGS: There is a fracture of the femoral neck. Mild displacement by approximately 1.5 centimetres. Fracture line extends obliquely from just above the lesser trochanter towards the subcapital area soup. Early . Lesser trochanter is intact. There are no acetabular fractures. No ipsilateral pubic rami fractures . Sacroiliac joint appears unremarkable. No obvious sacral fracture. No intrapelvic hematoma. No sign ificant osseous lesions. Perez catheter in the urinary bladder noted. IMPRESSION: Left femoral neck fracture. No underlying osseous lesion. RADIATION DOSE DELIVERED: 467.44mGy.cm Total DLP DATA REPOSITORY: All CT scans at this facility are submitted to the National Radiology Data Registry (NRDR) Dose Index Registry (DIR) with the [employer] (ACR). RADIATION OPTIMIZATION: All CT scans at this facility use at least one of these dose optimization te chniques: automated exposure control; mA and/or kV adjustment per patient size (includes targeted exa ms where dose is matched to clinical indication); or iterative reconstruction.
--- NOTE | 2020-08-23 | DI.RAD_ITS ---
EXAM: XR SHOULDER LT COMPLETE 2+V CLINICAL HISTORY: left shoulder trauma. TECHNIQUE: 2D digital imaging was performed. COMPARISON: CR RIGHT SHOULDER COMPLETE from 12/25/2017 FINDINGS: There is no evidence of acute fracture or dislocation. However, there is significant diminution of t he subacromial space consistent with probable chronic rotator cuff pathology. Probably full thicknes s tear of the rotator cuff mechanism. Downgoing osteophytes evident at the AC joint level. Mild deg enerative changes in the glenohumeral joint. No soft tissue calcifications. IMPRESSION: No fractures evident in the left shoulder but there is suspicion for chronic full-thickness rotator c uff tear. If clinically indicated this could be confirmed with MRI study. DATA REPOSITORY: RADIATION DOSE DELIVERED:
[2020-08-23 00:06] VITALS: BP 140/76; PULSE 70; RESP 18; TEMP 37.1; O2SAT 95
[2020-08-23] MEDS: Normal Saline Flush 10 ML SYR IVP ×3 (04:10→20:01)
[2020-08-23 07:30] VITALS: BP 150/79; PULSE 58; RESP 16; TEMP 36.9; O2SAT 98
[2020-08-23] MEDS: Acetaminophen 325 MG TAB 650 MG PO (07:38)
[2020-08-23] MEDS: Potassium Chloride 10 MEQ CAPCR PO (10:14)
[2020-08-23] MEDS: Losartan 50 MG TAB 100 MG PO (10:14)
--- NOTE | 2020-08-23 10:29 | OCONE_ITS ---
Date of service: 08/23/20 Time of Service: 10:00 History of Present Illness History of Present Illness Chief Complaint: Left hip pain Narrative: Chief Complaint: Left hip pain HPI: Mechanical fall off lower rung of ladder yesterday onto left side. Sudden onset, severe left hip pain. No prior history left hip pain. No bisphosphonates, cancer, or use of assist device for ambulation. Daughter states he has an unsteady gait at baseline with multiple falls bilateral lower extremity fractures as well as bilateral shoulder fractures versus rotator cuff tears. Brought to emergency department diagnosed with hip fracture admitted to the hospital. 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 PMH: A. fib?on Eliquis; deaf, mute, hypertension, peripheral vascular disease per EMR allergies: Lactose?swelling/edema FH: non-contributory SH: hand dominance: Right occupation: None smoke cigarettes: No Consult Reason Left hip fracture Assessment and Plan Assessment and plan (1) Displaced fracture of left femoral neck: Status: Acute Assessment and plan: 80 year old male s/p mechanical fall with displaced left femoral neck fracture and left shoulder contusion Medical admission and optimization for surgery Preoperative lab work, chest x-ray, and EKG complete Hold Eliquis with plan for open surgery on tomorrow 08/24/20 Left hip hemiarthroplasty N.p.o. and IV fluid after midnight. Antibiotics on-call to the OR. Maintain Perez until postoperative day #1. Nonweightbearing, bedrest, mechanical DVT prophylaxis, and resume Eliquis 24 hours postoperative as chemo DVT prophylaxis Left shoulder xrays ordered Will discuss with medical team, OR and floor nursing staff, and the patient's daughter Please call me directly with any questions or concerns about this patient (2) Contusion of left shoulder, initial encounter: Status: Acute Review of Systems Constitutional Constitutional: Denies chills and Denies fever(s) Eyes Eyes: Denies diplopia and Denies loss of vision ENT Ears, Nose, Mouth, and Throat: Denies dental pain and Denies other (cavities) Cardiovascular Cardiovascular: Denies chest pain with activity, Denies irregular heart rhythm and Denies dyspnea Respiratory Respiratory: Denies cough and Denies dyspnea Gastrointestinal Gastrointestinal: Denies nausea and Denies vomiting Musculoskeletal Musculoskeletal: Reports as per HPI Integumentary/Breasts Skin/Breast: Denies rash and Denies wounds Neurologic Neurologic: Reports as per HPI and Denies loss of vision Psychiatric Psychiatric: Denies anxiety and Denies depression Hematologic/Lymphatic Hematologic/Lymphatic: Reports easy bleeding and Reports easy bruising Comments: Due to blood thinning medication Allergic/Immunologic Allergic/Immunologic: Reports as per HPI [facility] Medical History (Updated 08/23/20 @ 10:27 by Yayo Blancas MD) Benign hypertension Deaf Epiglottitis Hypercholesterolemia occluded carotid artery Peripheral vascular disease Surgical History ear surgery from records, left or right not noted, no date.HE ORIF of supercondylar fx of the R femur (05/25/88) removal of compression screw and side plate from right femur (09/16/91) Right carotid endarterectomy from records, no date.HE Social History Smoking/Tobacco Use Status: Never Smoking risk assessment performed?: Yes Alcohol Intake: never Drug use: Never Substance use type: does not use Do you feel safe at home: Yes Do you feel safe in your relationship?: Yes Exam Narrative Exam Narrative: Alert and oriented resting in hospital bed Comfortable, no acute distress Breathing comfortably on room air 2+ radial pulse, regular rate and rhythm Mild generalized ecchymosis left hip and lateral thigh. All compartments soft. No skin breakdown. Grossly sensory intact light touch throughout left lower extremity. Left shoulder demonstrate active range of motion forward elevation past 125 degrees, external rotation past 45 degrees, globally mild tenderness to palpation and discomfort with active range of motion Results Last Vital Signs Temp 97.0 F L 08/22/20 16:23 Pulse 55 L 08/22/20 19:31 Resp 17 08/22/20 19:50 BP 144/88 H 08/22/20 19:31 Pulse Ox 99 08/22/20 19:50 Labs Result diagrams: 08/22/20 18:30 08/22/20 19:50 Labs: Laboratory Results - last 24 hr 08/22/20 08/22/20 08/22/20 18:30 18:30 19:50 WBC 13.91 H RBC 4.30 L Hgb 13.5 Hct 41.6 MCV 96.7 H MCH 31.4 MCHC 32.5 RDW 12.2 Plt Count 184 MPV 10.9 Immature Gran % 0.4 Neutrophils % 89.9 Lymphocytes % 6.3 Monocytes % 2.9 Eosinophils % 0.3 Basophils % 0.2 Nucleated RBC % 0 Absolute Neutrophils 12.51 H Absolute Lymphocytes 0.88 L Absolute Monocytes 0.40 Absolute Eosinophils 0.04 Absolute Basophils 0.03 PT 10.9 INR 1.1 APTT 22.1 Sodium 139 Potassium 4.0 Chloride 104 Carbon Dioxide 28.2 Anion Gap 6.8 BUN 20 H Creatinine 1.01 Estimated GFR/1.73 m2 >= 60.00 Glucose 128 H Calcium 9.4 Total Bilirubin 0.5 AST 17 ALT 21 Alkaline Phosphatase 58 NT-Pro-B Natriuret Pep Total Protein 7.5 Albumin 3.8 Patient ABO/Rh Antibody Screen 08/22/20 08/22/20 19:50 19:50 WBC RBC Hgb Hct MCV MCH MCHC RDW Plt Count MPV Immature Gran % Neutrophils % Lymphocytes % Monocytes % Eosinophils % Basophils % Nucleated RBC % Absolute Neutrophils Absolute Lymphocytes Absolute Monocytes Absolute Eosinophils Absolute Basophils PT INR APTT Sodium Potassium Chloride Carbon Dioxide Anion Gap BUN Creatinine Estimated GFR/1.73 m2 Glucose Calcium Total Bilirubin AST ALT Alkaline Phosphatase NT-Pro-B Natriuret Pep 2216 H Total Protein Albumin Patient ABO/Rh O Positive Antibody Screen Negative Imaging Imaging Studies: Pelvis, left hip, and left femur x-rays report and images independent reviewed: Significant for moderately displaced femoral neck fractur e. No extension subtrochanteric region. [place] B bone. Moderate pre-existing hip joint arthrosis to without significant or severe degenerative changes. CT left hip without contrast ordered and pending reviewed: Confirms displaced translated femoral neck fracture as opposed to basicervical or intertrochanteric type fracture. Significant fracture site and posterior comminution.
--- NOTE | 2020-08-23 10:39 | NUR.NOTE ---
Nursing Note: 08/23/2020 10:39 Authoring nurse received patient from night nurse Chiara Ivan RN who knows limited ASL and reported that this patient is Deaf and uses some ASL with fingerspelling to communicate. Authoring nurse knows limited ASL and has been able to communicate with the patient for a physical assessment and pain assessment, and to explain CT imaging for his broken hip. This nurse stayed with patient for CT imaging this morning prior to daughter's arrival to help with communication. Nurse notified charge nurse of a need for jet pilot services and for a designated support person to be allowed to visit this patient. Patient's daughter, Kade Truong, was contacted and informed that she can come visit patient at the hospital and the surgeon, anesthesia will coordinate communication and consent around her being here. Authoring nurse offered professional interpreting services that patient and daughter refused. Daughter arrived and was present for surgical consent with Dr. Blancas, spoke with anesthesia. Kade reports she gave hospital paperwork stating she is power of corporate associate attorney for her father, and is who has always interpreted for him. Charge nurse was notified. IT was contacted to help with jet pilot services because of technical issues.
--- NOTE | 2020-08-23 14:42 | W.PM.PROGNOT ---
Date of Service Date of service: 08/23/20 Time of Service: 14:42 Assessment and Plan Assessment and plan (1) Hip fracture: Status: Acute Assessment and plan: Hip fracture secondary to mechanical fall. surgery delayed due to DOAC. Will continue to hold DOAC, prn analgesics Ortho following. medically cleared for repair. (2) Atrial fibrillation: Status: Acute Assessment and plan: hold DOAC pre-operatively. rate controlled. Echo 08/23/20 Conclusion Left Ventricle : The left ventricle is normal size. Left ventricular systolic function is mildly reduced. There is normal left ventricular wall thickness. There is global hypokinesis of the left ventricle. The left ventricular diastolic function is normal. LVEF is 40-45%. Right Ventricle : Right ventricle is mild to moderately dilated. The right ventricular systolic function is normal. The RVSP is 34.3 mmHg. Atria : Left atrium is severely dilated. Right atrium is severely dilated. Aortic Valve : The Aortic valve is sclerotic. Aortic valve is trileaflet. There is no aortic valvular stenosis. No aortic regurgitation is present. Mitral Valve : Moderate mitral annular calcification. Mild mitral regurgitation. No evidence of mitral valve stenosis. Great Vessels : The aortic root is normal in size. The ascending aorta is normal in size. Aortic arch is not well visualized. The IVC collapses <50% with inspiration. Please see remainder of study for further details. As compared to study from 11/17/2017, there is no significant change. Subjective Subjective Patient reports: still having pain Exam Const General: cooperative, healthy appearing, comfortable and no acute distress Nutritional Appearance: average body habitus Orientation: alert, awake and oriented x3 HENMT Head: normal to inspection, normocephalic and atraumatic Mouth: oral mucosae normal Chest Chest: normal inspection of the chest Resp Effort & Inspection: normal respiratory effort Auscultation: clear to auscultation bilaterally Cardio Rate: regular rate Rhythm: regular rhythm GI Inspection: normal to inspection Palpation: soft Auscultation: normal bowel sounds Skin General skin exam: no rashes or lesions noted Neuro General: patient alert and patient awake Extrem General: normal to inspection Objective Last Vital Signs Temp 36.9 C 08/23/20 07:30 Pulse 58 L 08/23/20 07:30 Resp 16 08/23/20 07:30 BP 150/79 H 08/23/20 07:30 Pulse Ox 98 08/23/20 07:30 Laboratory Results - last 24 hr 08/22/20 08/22/20 08/22/20 18:30 18:30 19:50 WBC 13.91 H RBC 4.30 L Hgb 13.5 Hct 41.6 MCV 96.7 H MCH 31.4 MCHC 32.5 RDW 12.2 Plt Count 184 MPV 10.9 Immature Gran % 0.4 Neutrophils % 89.9 Lymphocytes % 6.3 Monocytes % 2.9 Eosinophils % 0.3 Basophils % 0.2 Nucleated RBC % 0 Absolute Neutrophils 12.51 H Absolute Lymphocytes 0.88 L Absolute Monocytes 0.40 Absolute Eosinophils 0.04 Absolute Basophils 0.03 PT 10.9 INR 1.1 APTT 22.1 Sodium 139 Potassium 4.0 Chloride 104 Carbon Dioxide 28.2 Anion Gap 6.8 BUN 20 H Creatinine 1.01 Estimated GFR/1.73 m2 >= 60.00 Glucose 128 H Calcium 9.4 Total Bilirubin 0.5 AST 17 ALT 21 Alkaline Phosphatase 58 NT-Pro-B Natriuret Pep Total Protein 7.5 Albumin 3.8 Patient ABO/Rh Antibody Screen 08/22/20 08/22/20 19:50 19:50 WBC RBC Hgb Hct MCV MCH MCHC RDW Plt Count MPV Immature Gran % Neutrophils % Lymphocytes % Monocytes % Eosinophils % Basophils % Nucleated RBC % Absolute Neutrophils Absolute Lymphocytes Absolute Monocytes Absolute Eosinophils Absolute Basophils PT INR APTT Sodium Potassium Chloride Carbon Dioxide Anion Gap BUN Creatinine Estimated GFR/1.73 m2 Glucose Calcium Total Bilirubin AST ALT Alkaline Phosphatase NT-Pro-B Natriuret Pep 2216 H Total Protein Albumin Patient ABO/Rh O Positive Antibody Screen Negative
--- NOTE | 2020-08-23 16:22 | INITIAL_ITS ---
- If Service Date Differs Date of service: 08/23/20 Time of Service: 17:53 Care Management Initial Assess REASON FOR HOSPITALIZATION:: Hip Fracture PAST MEDICAL HISTORY/PAST SURGICAL HISTORY:: Benign hypertension, deaf, epiglottitis, hypercholesterolemia, occluded carotid artery, PVD, ear surgery, ORIF of supercondylar fx of the R femur, removal of compression screw and side plate from right femur, right carotid endarterectomy PREVIOUS FUNCTIONAL STATUS/SOCIAL/FAMILY SUPPORTS:: Mich resides in his own home in [place], his daughter and grandchildren are local. 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 Mich does not read or write, and does not have fluent sign language. He does read lips at times, and his daughter is able to communicate with him and relay information to staff. CURRENT FUNCTIONAL STATUS:: Mich is very [place] and unable to communicate directly with those outside of his natural support system. He has a close friend, Jacob and daughter who are able to fully communicate with him and translate to staff. CM supported coordination of remote communication for Mich to connect with his family. ADVANCE DIRECTIVES:: On file at [facility] agent Kade; daughter and grandson; Moises. Has patient been provided with info about the portal/API?: No Did the patient sign up for the portal?: No CODE STATUS:: DNR/DNI INSURANCE COVERAGE / FINANCIAL ISSUES:: Medicare PRIMARY CARE PHYSICIAN:: Dr. King POTENTIAL DISCHARGE NEEDS:: Follow up appointment with PCP. PATIENT/FAMILY EDUCATION NEEDS:: Review discharge instructions with support of daughter, discuss self care needs upon discharge, Ask Me Three. ANTICIPATED BARRIERS TO DISCHARGE:: None identifed. TRANSPORTATION:: Via private vehicle with family. PLAN:: Mich continues to be closely monitored; awaiting medical clearance for surgical intervention. Per provider, Mcih is medically cleared for surgery and will be brought to the OR tomorrow morning. CM continues to follow.
--- NOTE | 2020-08-23 18:06 | NUR.NOTE ---
Nursing Note: 08/23/2020 18:06 Patient is unable to fully communicate with people outside of his immediate support system, which includes his daughter Madonna and friend Jacob. Patient is not proficient in [place] Sign Language, does not read or write in Serbian, and has limited lip reading ability. Authoring nurse spent several hours throughout today facilitating communication between staff and patient, notifying the charge nurse, case management, doctor involved, house mover, securities broker, and IT. Patient has iPad present in room that has access to Facebook, which his daughter Madonna was setting up this afternoon before she had to leave. Madonna and patient, Mich, confirmed with nurse that Facebook was an appropriate way for them to be able to communicate tonight if they need to. Madonna verbalized to nurse that she plans to return tomorrow morning for patient's planned surgery. Nurse will continue to monitor and facilitate communication with the patient.
[2020-08-23 19:36] VITALS: BP 134/78; PULSE 70; RESP 18; TEMP 36.7; O2SAT 95
[2020-08-23] MEDS: Triamcinolone 0.1% OINT 15 GM TUBE TP (19:59)
[2020-08-23] MEDS: Omeprazole 20 MG CAPCR 40 MG PO (19:59)
[2020-08-23] MEDS: Simvastatin 40 MG TAB PO (21:32)
[2020-08-24] VITALS (16 sets, daily range): BP systolic 91–170; BP diastolic 60–80; PULSE 53–78; RESP 11–22; TEMP 36–36.9; O2SAT 92–100
[2020-08-24] MEDS: Triamcinolone 0.1% OINT 15 GM TUBE TP (08:34)
[2020-08-24] MEDS: Losartan 50 MG TAB 100 MG PO (08:34)
--- NOTE | 2020-08-24 09:03 | CMPROGNOTE_ITS ---
Care Management Progress Note S/O: Mich was brought to the OR this morning. CM contacted IS for remote communication support. Zoom account initiated to outreach to daughter, Kade at her email: [email or web address]. Kade reports she will visit today; awaiting determination from ID regarding visitor approval. CM continues to follow. A: 80 year old male admitted to [facility] 08/22/20 for hip fracture. P: Mich was medically cleared for surgery and brought to the OR this morning. He will be closely monitored post surgically to determine level of care needed upon discharge. CM continues to follow.
[2020-08-24 10:32] LABS: Abs Immature Grans 0.03 10^3/uL (0.0-0.06); Absolute Basophil Count 0.03 10^3/uL (0.0-0.2); Absolute Eosinophil Count 0.03 10^3/uL (0.0-0.7); Absolute Monocyte Count 0.58 10^3/uL (0.1-0.8); Absolute Neutrophil Count 8.66 10^3/uL (1.2-6.7); Basophils % 0.3; Eosinophils % 0.3; HGB 13.1 g/dL (13.5-17.5); Immature Grans % 0.3; Lymphocytes % 9.7; MCH 31.3 pg (27.0-33.0); MCHC 32.8 % (32.0-36.0); MCV 95.7 fL (80-95); MPV 10.9 fL (8.0-11.0); Monocytes % 5.6; Neutrophils % 83.8; Nucleated RBC 0 %; Platelet Count 142 10^3/uL (130-400); RBC 4.18 10^6/uL (4.36-5.78); RDW 12.2 % (11.8-14.1); RDW-SD 43.4 fL; WBC 10.33 10^3/uL (4.4-10.8)
[2020-08-24 10:41] LABS: ALT 13 U/L (16-63); AST 11 U/L (15-37); Albumin 3.1 g/dL (3.4-5.0); Alkaline Phosphatase 48 U/L (46-116); Anion Gap 5.1 mmol/L (3-11); BUN 19 mg/dL (7-18); Bilirubin, Total 0.6 mg/dL (0.2-1.0); CO2 27.9 mmol/L (21.0-32.0); CREATININE 0.82 mg/dL (0.70-1.30); Calcium 8.7 mg/dL (8.5-10.1); Chloride 100 mmol/L (98-107); Glucose 115 mg/dL (74-106); Potassium 4.4 mmol/L (3.5-5.1); Sodium 133 mmol/L (136-145); Total Protein 6.8 g/dL (6.4-8.2)
[2020-08-24] MEDS: Lactated Ringers 1,000 ML 30 ML IV (11:10)
--- NOTE | 2020-08-24 11:10 | W.PM.PROGNOT ---
Date of Service Date of service: 08/24/20 Time of Service: 11:10 Assessment and Plan Assessment and plan (1) Hip fracture: Status: Acute Assessment and plan: medically cleared for repair. planned procedure today (2) Atrial fibrillation: Status: Acute Assessment and plan: hold DOAC pre-operatively. rate controlled. Echo 08/23/20 Conclusion Left Ventricle : The left ventricle is normal size. Left ventricular systolic function is mildly reduced. There is normal left ventricular wall thickness. There is global hypokinesis of the left ventricle. The left ventricular diastolic function is normal. LVEF is 40-45%. Right Ventricle : Right ventricle is mild to moderately dilated. The right ventricular systolic function is normal. The RVSP is 34.3 mmHg. Atria : Left atrium is severely dilated. Right atrium is severely dilated. Aortic Valve : The Aortic valve is sclerotic. Aortic valve is trileaflet. There is no aortic valvular stenosis. No aortic regurgitation is present. Mitral Valve : Moderate mitral annular calcification. Mild mitral regurgitation. No evidence of mitral valve stenosis. Great Vessels : The aortic root is normal in size. The ascending aorta is normal in size. Aortic arch is not well visualized. The IVC collapses <50% with inspiration. Please see remainder of study for further details. As compared to study from 11/17/2017, there is no significant change. (3) Hematuria: Status: Acute Assessment and plan: resolved now. follow renal function, urology consult. will need imaging. Subjective Subjective Patient reports: no new complaints Interval history since last seen: resting comfortably in his bed, daughter at bedside. patient reports pain is managed. has been NPO for planned surgery today. song with bloody urine draining overnight. resolved this morning. denies pulling on catheter. will monitor kidney function, consider urology consult. Exam Const General: cooperative, healthy appearing, comfortable and no acute distress Nutritional Appearance: average body habitus Orientation: alert, awake and oriented x3 HENMT Head: normal to inspection, normocephalic and atraumatic Mouth: oral mucosae normal Chest Chest: normal inspection of the chest Resp Effort & Inspection: normal respiratory effort Auscultation: clear to auscultation bilaterally Cardio Rate: regular rate Rhythm: regular rhythm GI Inspection: normal to inspection Palpation: soft Auscultation: normal bowel sounds Skin General skin exam: no rashes or lesions noted Neuro General: patient alert and patient awake Extrem General: normal to inspection and abnormal ROM Left lower extremity: abnormal ROM Objective Last Vital Signs Temp 36.5 C 08/24/20 07:09 Pulse 64 08/24/20 07:09 Resp 18 08/24/20 07:09 BP 135/77 08/24/20 07:09 Pulse Ox 97 08/24/20 07:09 Laboratory Results - last 24 hr 08/24/20 08/24/20 10:17 10:17 WBC 10.33 RBC 4.18 L Hgb 13.1 L Hct 40.0 MCV 95.7 H MCH 31.3 MCHC 32.8 RDW 12.2 Plt Count 142 MPV 10.9 Immature Gran % 0.3 Neutrophils % 83.8 Lymphocytes % 9.7 Monocytes % 5.6 Eosinophils % 0.3 Basophils % 0.3 Nucleated RBC % 0 Absolute Neutrophils 8.66 H Absolute Lymphocytes 1.00 L Absolute Monocytes 0.58 Absolute Eosinophils 0.03 Absolute Basophils 0.03 Sodium 133 L Potassium 4.4 Chloride 100 Carbon Dioxide 27.9 Anion Gap 5.1 BUN 19 H Creatinine 0.82 Estimated GFR/1.73 m2 >= 60.00 Glucose 115 H Calcium 8.7 Total Bilirubin 0.6 AST 11 L ALT 13 L Alkaline Phosphatase 48 Total Protein 6.8 Albumin 3.1 L
[2020-08-24] MEDS: EPINEPHrine 1 MG/ML AMP pres-free (11:59)
[2020-08-24] MEDS: Bupivacaine 0.25% Pres-Free 30 ML VIAL (11:59)
--- NOTE | 2020-08-24 13:15 | DI.RAD_ITS ---
EXAM: XR HIP LT COMPLETE AP PELVIS INDICATION: Postop. COMPARISON: CR,XR XR HIP LT COMPLETE AP PELVIS from 08/22/2020 CR XR SHOULDER LT COMPLETE 2+V from 08/23/2020 TECHNIQUE: 2D digital imaging was performed. FINDINGS: A left hip prosthesis has been placed. The alignment appears satisfactory. There is residual postop erative air in the soft tissues. Bladder catheter in place. Vascular calcifications. Left lower pe lvic surgical clips IMPRESSION: S/p placement of left hip prosthesis. DATA REPOSITORY: RADIATION DOSE DELIVERED:
--- NOTE | 2020-08-24 13:34 | W.PM.OP ---
Date of service: 08/24/20 Time of Service: 13:34 Operative Note Operative Note DATE OF PROCEDURE: 08/24/20 PRE-OP DIAGNOSIS: 1. Left displaced femoral neck fracture POST-OP DIAGNOSIS: same PROCEDURE: 1. Left posterior hip press fit hemiarthroplasty SURGEON: Yayo Blancas MASTER WELDER: Oralia Mendenhall ANESTHESIA: GETA and local ESTIMATED BLOOD LOSS: 300 COMPLICATIONS: None Patient was transported to: PACU Patient's condition: stable Implants: [employer] [place] cemented femoral stem size 9 with 52 mm unipolar head +0 mm length Indications: Please see complete medical record for details. Procedure Description: In the operating room, general anesthesia was induced. The patient was transferred and positioned laterally on the operating room table. All bony prominences were well-padded. Preoperative antibiotics were administered. The left hip was prepped and draped in the usual sterile fashion. The correct patient, procedure, and side of the procedure were all verified prior to incision. The posterior lateral approach to left hip was utilized. 30 cc of 0.25% bupivacaine containing epinephrine was infiltrated about the incision. Deeply, care was taken to protect the sciatic nerve. The short external rotators and capsule were reflected off the femoral neck and tagged for retraction and later repair. There was excellent preservation of capsule and labrum about the bony acetabulum. The femoral neck fracture was quite low medially and rongeoured to an appropriate length and to match the desired implant. The femoral head was removed from the acetabulum and measured on the back table. All bony debris was removed from the wound. The proximal femoral canal was sequentially opened, reamed, and broached with the appropriate lateralization and anteversion until there was a relatively solid fit. Trial reduction with a standard offset +0 mm length head demonstrated good suction seal and stability throughout physiologic range of motion. The trial implants were removed. The wound was copiously irrigated with normal saline. The femoral stem was then impacted to the appropriate depth demonstrating excellent stability and rotational control. The last used femoral head was trialed and found to have excellent stability throughout supra-physiologic range of motion including vulnerable positions. The wound was copiously irrigated with normal saline. The trunnion was dried, and the final femoral head was impacted, reduced into the acetabulum, and found to have excellent stability. There was some concern some of soft tissue labrum was interposed so hip was dislocated again, acetabulum checked, and then relocated with excellent suction seal and confirmation of the unipolar head more deeply in the acetabulum. The wound was copiously irrigated normal saline again. 1 g of vancomycin powder was distributed mostly deep to the capsule with some superficial to the capsule about the wound. The capsule and short external rotators were repaired using #2 FiberWire through bone tunnels in the greater trochanter as well as to the gluteus medius and a side to side fashion somewhat anatomically. Distally, the IT band fascia was closed using #1 Vicryl in an interrupted fashion. Proximally, the gluteus shawn muscle fascia was closed using 0 Vicryl in a running fashion. The superficial wound was irrigated with normal saline. Subcutaneous tissue was closed using 2-0 Monocryl in a buried interrupted fashion. Skin was closed using 3-0 Monocryl in a buried subcuticular buried fashion. Skin was sealed with skin glue. A silver impregnated bandage was applied over the wound. The patient awoke from anesthesia without complication and was transferred to the recovery room in a stable condition.
--- NOTE | 2020-08-24 13:41 | W.PM.PROGNOT ---
Date of Service Date of service: 08/24/20 Time of Service: 14:33 Assessment and Plan Assessment and plan (1) Displaced fracture of left femoral neck: Status: Acute Assessment and plan: 80-year-old male postop day #0 status post left posterior hip hemiarthroplasty Complete 24 hours postoperative antibiotics Discontinue Perez catheter postop day #1 Pain control?Multimodal Physical therapy ordered: Weightbearing as tolerated with assist device May resume Eliquis 24 hours postoperative as DVT prophylaxis assuming hemodynamically stable Mechanical DVT prophylaxis with SCDs and/or DA connor Appreciate medical management I will see the patient tomorrow and discuss with his daughter. Follow-up with Dr. Blancas outpatient [facility] in 2 to 3 weeks Subjective Subjective Interval history since last seen: No complaints. Exam Narrative Exam Narrative: Resting comfortably in PACU Breathing on supplemental O2 without difficulty Left hip dressing clean, dry, intact Thigh leg compartments all soft without deformity Nonpalpable distal pulses but grossly warm and well-perfused Leg lengths measured at medial malleoli roughly equal Objective Last Vital Signs Temp 97.7 F 08/24/20 07:09 Pulse 64 08/24/20 07:09 Resp 18 08/24/20 07:09 BP 135/77 08/24/20 07:09 Pulse Ox 97 08/24/20 07:09 Laboratory Results - last 24 hr 08/24/20 08/24/20 10:17 10:17 WBC 10.33 RBC 4.18 L Hgb 13.1 L Hct 40.0 MCV 95.7 H MCH 31.3 MCHC 32.8 RDW 12.2 Plt Count 142 MPV 10.9 Immature Gran % 0.3 Neutrophils % 83.8 Lymphocytes % 9.7 Monocytes % 5.6 Eosinophils % 0.3 Basophils % 0.3 Nucleated RBC % 0 Absolute Neutrophils 8.66 H Absolute Lymphocytes 1.00 L Absolute Monocytes 0.58 Absolute Eosinophils 0.03 Absolute Basophils 0.03 Sodium 133 L Potassium 4.4 Chloride 100 Carbon Dioxide 27.9 Anion Gap 5.1 BUN 19 H Creatinine 0.82 Estimated GFR/1.73 m2 >= 60.00 Glucose 115 H Calcium 8.7 Total Bilirubin 0.6 AST 11 L ALT 13 L Alkaline Phosphatase 48 Total Protein 6.8 Albumin 3.1 L
--- NOTE | 2020-08-24 14:34 | PHA.REVIEW ---
Pharmacy Admission Review - Admission Clinical Review (Last Reviewed 08/23/20 @ 09:29 by Yayo Blancas MD) Hematuria (Acute) Contusion of left shoulder, initial encounter (Acute 08/22/20) Displaced fracture of left femoral neck (Acute 08/22/20) Hip fracture (Acute) Atrial fibrillation (Acute) lactose Allergy (Unverified 08/22/20 18:33) Swelling/Edema Height 5 ft 8 in Weight 68.8 kg - Renal Dosing Renal Dosing: BUN 19 mg/dL (7-18) H 08/24/20 10:17 Creatinine 0.82 mg/dL (0.70-1.30) 08/24/20 10:17 Medications needing adjustments: Reviewed (Crcl ~67 mL/min current meds okay) - Anticoagulation Anticoagulation: Hgb 13.1 g/dL (13.5-17.5) L 08/24/20 10:17 Hct 40.0 % (40.0-50.0) 08/24/20 10:17 Plt Count 142 10^3/uL (130-400) 08/24/20 10:17 INR 1.1 (0.9-1.1) 08/22/20 18:30 Creatinine 0.82 mg/dL (0.70-1.30) 08/24/20 10:17 DVT Prohphylaxis: N/A Therapeutic Anticoagulation: Reviewed Medications: Apixaban (on hold due to surgery today, watch for resumption postoperatively) - Opiate Usage Evaluate Pain Scale/Pains Meds: Intervened Scheduled Bowel Reg ordered if on Opiates?: No (will mention to provider) - Relevant Labs Sodium 133 mmol/L (136-145) L 08/24/20 10:17 Potassium 4.4 mmol/L (3.5-5.1) 08/24/20 10:17 Chloride 100 mmol/L (98-107) 08/24/20 10:17 Electrolytes, C-Reactive P, ESR: Reviewed - DM Control DM Control: Glucose 115 mg/dL (74-106) H 08/24/20 10:17 Insulin Dosing: Intervened (Mildly elevated this admission and going back a few years, no A1c on file. Will mention to provider) - Heart Failure/MS Heart Failure/MS: NT-Pro-B Natriuret Pep 2216 pg/mL (<300) H 08/22/20 19:50 EF%, SRINIVASA's, B-Blockers, Diuretics: Reviewed - BP Control BP Control: Blood Pressure 105/63 Blood Pressure 91/60 Blood Pressure 103/72 Blood Pressure 135/77 Blood Pressure 134/72 If elevated: Reviewed - Qtc Review If Elevated: Reviewed (QTc 492 on admission current meds okay) - IV to PO Switch IV Medications: Reviewed - Home Meds Home Med List reviewed: Reviewed (Ipratropium may enhance the ulcerogenic effect of potassium, consider alternative dosage form of potassium.) Relevent Home Meds Not ordered & why?: albuterol (PRN), apixaban (on hold due to surgery). - Current meds Current Medication Order Review: Reviewed - Comments Comments/Follow Ups: Watch VS, labs, BG, SCr, and for med changes (d/c pacu meds, need of bm meds, possible pain med adjustments/options, avoid QT prolonging meds, resumption of apixaban tomorrow). Antibiotic Activity - Pharmacy Antibiotic Review Pharmacy Antibiotic Activity: Reviewed, no change (Cefazolin ordered pre and postop, set to discontinue tomorrow.)
[2020-08-24] MEDS: fentaNYL 100 MCG/2 ML VIAL IVP ×4 (14:46→15:31)
[2020-08-24] MEDS: Acetaminophen 325 MG TAB 650 MG PO ×2 (17:04→22:39)
[2020-08-24] MEDS: ceFAZolin 1 GM/50 ML BAG IVPB (17:04)
[2020-08-24] MEDS: Omeprazole 20 MG CAPCR 40 MG PO (20:44)
[2020-08-24] MEDS: Docusate Sodium 100 MG CAP PO (20:45)
[2020-08-24] MEDS: Simvastatin 40 MG TAB PO (22:26)
[2020-08-24] MEDS: Normal Saline Flush 10 ML SYR IVP (22:41)
[2020-08-25] MEDS: ceFAZolin 1 GM/50 ML BAG IVPB ×2 (00:19→08:49)
[2020-08-25] MEDS: Normal Saline Flush 10 ML SYR IVP ×3 (02:53→22:55)
[2020-08-25 03:40] VITALS: BP 122/76; PULSE 85; RESP 17; TEMP 36.7; O2SAT 95
[2020-08-25] MEDS: Vitamins B Comp w/C TAB 1 TAB PO (08:49)
[2020-08-25] MEDS: Losartan 50 MG TAB 100 MG PO (08:49)
[2020-08-25 08:50] VITALS: TEMP 37.8; O2SAT 98
[2020-08-25] MEDS: Triamcinolone 0.1% OINT 15 GM TUBE TP ×3 (08:50→22:54)
[2020-08-25] MEDS: Potassium Chloride 10 MEQ CAPCR PO (08:50)
[2020-08-25] MEDS: Omeprazole 20 MG CAPCR 40 MG PO ×2 (08:50→22:53)
[2020-08-25] MEDS: Acetaminophen 325 MG TAB 650 MG PO ×3 (08:50→18:17)
[2020-08-25] MEDS: Docusate Sodium 100 MG CAP PO ×2 (08:50→22:53)
[2020-08-25 09:05] VITALS: BP 117/71; PULSE 65; RESP 16; TEMP 37.8; O2SAT 96
[2020-08-25 10:06] LABS: COVID-19 RT-PCR Result NEGATIVE (Negative)
[2020-08-25 10:32] LABS: Abs Immature Grans 0.04 10^3/uL (0.0-0.06); Absolute Eosinophil Count 0.01 10^3/uL (0.0-0.7); Absolute Monocyte Count 1.01 10^3/uL (0.1-0.8); Basophils % 0.2; Eosinophils % 0.1; HCT 33.4 % (40.0-50.0); HGB 11.2 g/dL (13.5-17.5); Immature Grans % 0.3; Lymphocytes % 6.1; MCH 31.3 pg (27.0-33.0); MCHC 33.5 % (32.0-36.0); MCV 93.3 fL (80-95); MPV 11.1 fL (8.0-11.0); Monocytes % 7.7; Neutrophils % 85.6; Nucleated RBC 0 %; Platelet Count 165 10^3/uL (130-400); RBC 3.58 10^6/uL (4.36-5.78); RDW 12.2 % (11.8-14.1); RDW-SD 42.1 fL
[2020-08-25 10:36] LABS: Absolute Basophil Count 0.03 10^3/uL (0.0-0.2); Absolute Neutrophil Count 11.21 10^3/uL (1.2-6.7)
[2020-08-25 10:43] LABS: Anion Gap 6.5 mmol/L (3-11); BUN 25 mg/dL (7-18); CO2 26.5 mmol/L (21.0-32.0); CREATININE 1.23 mg/dL (0.70-1.30); Calcium 8.5 mg/dL (8.5-10.1); Chloride 97 mmol/L (98-107); Estimated GFR 56.34 (mL/min/1.73m2); Glucose 178 mg/dL (74-106); Potassium 4.4 mmol/L (3.5-5.1); Sodium 130 mmol/L (136-145)
--- NOTE | 2020-08-25 11:19 | W.PM.PROGNOT ---
Date of Service Date of service: 08/25/20 Time of Service: 11:15 Assessment and Plan Assessment and plan (1) Displaced fracture of left femoral neck: Status: Acute Assessment and plan: 80-year-old male postop day #1 status post left posterior hip hemiarthroplasty Wound care assessment ordered likely stage I sacral decub Also for left hip Mepilex dressing change tomorrow or 08/27/2020 Complete 24 hours postoperative antibiotics Discontinue Perez catheter today Pain control?Multimodal Physical therapy ordered: Weightbearing as tolerated with assist device. Avoid deep hip flexion and strenuous abduction/external rotation if possible for about 2 months. No abduction pillow necessary. May resume Eliquis this evening as DVT prophylaxis Continue mechanical DVT prophylaxis with SCDs and/or DA hose Discharge when medically appropriate Discussed with primary medical team and the patient's daughter Follow-up with Dr. Blancas outpatient [facility] in 2 to 3 weeks?please call Thursday to confirm appointment Subjective Subjective Interval history since last seen: No complaints. Denies any fevers, chills, headache chest pain or shortness of breath. Exam Narrative Exam Narrative: Resting comfortably in chair Breathing on room air without difficulty Left hip dressing about 75% sanguinous. Remainder clean. Well adhered peripherally, not saturated throughout. Surrounding skin without breakdown or ecchymosis. Thigh leg compartments all soft Nonpalpable distal pulses but grossly warm and well-perfused Demonstrates active knee extension and excellent range of motion about the foot and ankle Sensation intact light touch grossly throughout the left lower extremity Objective Last Vital Signs Temp 100.0 F H 08/25/20 09:05 Pulse 65 08/25/20 09:05 Resp 16 08/25/20 09:05 BP 117/71 08/25/20 09:05 Pulse Ox 96 08/25/20 09:05 Laboratory Results - last 24 hr 08/22/20 08/24/20 08/24/20 18:11 10:17 10:17 WBC 10.33 RBC 4.18 L Hgb 13.1 L Hct 40.0 MCV 95.7 H MCH 31.3 MCHC 32.8 RDW 12.2 Plt Count 142 MPV 10.9 Immature Gran % 0.3 Neutrophils % 83.8 Lymphocytes % 9.7 Monocytes % 5.6 Eosinophils % 0.3 Basophils % 0.3 Nucleated RBC % 0 Absolute Neutrophils 8.66 H Absolute Lymphocytes 1.00 L Absolute Monocytes 0.58 Absolute Eosinophils 0.03 Absolute Basophils 0.03 Sodium 133 L Potassium 4.4 Chloride 100 Carbon Dioxide 27.9 Anion Gap 5.1 BUN 19 H Creatinine 0.82 Estimated GFR/1.73 m2 >= 60.00 Glucose 115 H Calcium 8.7 Total Bilirubin 0.6 AST 11 L ALT 13 L Alkaline Phosphatase 48 Total Protein 6.8 Albumin 3.1 L SARS-CoV-2 (PCR) Not Applicable Nasopharyn COVID-19 PCR Negative Ref Test Perform Site [facility] [employer]
--- NOTE | 2020-08-25 11:20 | PT.INIE ---
Date of service: 08/25/20 Time of Service: 09:00 PT Notes Visit Reasons: HIP FRACTURE Inpatient Physical Therapy Evaluation Date: 08/25/20 Referring Doctor: Yayo Blancas MD PT Orders: PT CONSULT: S/P ortho surgery, WBAT with assist device Precautions: Standard, deaf, mute Patient Profile/Admitting Diagnosis: 80 year old male S/P L posterior hemiarthroplasty 08/24/20, as a result of mechanical fall. Evaluation completed with is daughter assisting communication via FB call. PMHX: Medical History (Updated 08/22/20 @ 18:38 by Adrian Mclean MD) Benign hypertension Deaf Epiglottitis Hypercholesterolemia occluded carotid artery Peripheral vascular disease Surgical History ear surgery from records, left or right not noted, no date.HE ORIF of supercondylar fx of the R femur (05/25/88) removal of compression screw and side plate from right femur (09/16/91) Right carotid endarterectomy Social History/Home Situation: Lives alone, functioned independently with a supportive daughter near by. His home is on one level, with 3 stairs to enter with rail. He is deaf mute, utilizes modified sign language to communicate with his family. Current Functional Limitations: Requires use of RW, and C G to min A for all transfers, bed mobility, and ambulation. Equipment Owned/DME: Daughter says maybe a walker. She will look around. Subjective: Mute. Communicates with daughter, to identify pain at 6/10. Daughter reports he is anxious, so the more assist possible the better, primarily due to his communication barrier. Objective: General Observation: Lying reclined in hospital bed, with IV L arm, song, bandage posterior lateral L hip. Mental Status: Alert, communicating logically through his daughter. Pain: 6/10 Vital Signs: BP 117/71, HR 65 ROM: Right Upper Extremity: WFL Left Upper Extremity: WFL Right Lower Extremity: WFL Left Lower Extremity: Limited secondary to pain. Motion observed with transfers at 100* hip flexion, abduction 10*, avoids motion otherwise. In standing lack full extension due to pain of about 20* hip ext. L knee 0-90*, pain with movement. Ankle WNL Strength: Right Upper Extremity: WNL Left Upper Extremity: WNL Right Lower Extremity: WNL Left Lower Extremity: Pain upon any AROM attempt so defer. He does demonstrate active motion of ankle and 2/5 isometric setting of quad Sensation/palpation: Difficult to assess with deaf and mute condition. Does identify pain with thumbs down with palpation near surgical sit as expected, otherwise no discomfort expressed through L LE. Bed Mobility/Transfers: Min A x 1 with LE's reclined at 45* in bed to sitting EOB CGx2 at RW, sit to stand and vice versa Standing pivot, RW, CGx2, verbal cues Gait: 4 steps bed to chair, RW, dependent on arms and R leg, WBTT L LE. Small stride length, cautious. Balance: Static Sitting: Good Dynamic Sitting: Poor Static Standing: Poor Dynamic Standing: Poor Special Tests: Mobility Limitations Standardized Measure [facility] AM-PAC 6 clicks Basic Mobility Inpatient Short Form: 64% disability Informed Consent/Education: Patient's daughter instructed in purpose of PT consult and plan of care, and she communicated to patient. Assessment: Patient is a 80 year old male referred to physical therapy services with the diagnosis of L posterior hip hemiarthroplasty. Patient presents with clinical signs and symptoms consistent with post op referral, in the prescense of deaf and mute condition limiting some communication. He demonstrates the following impairment level findings: L LE weakness and mobility deficits, poor tolerance to weightbearing due to pain and pain induced motor control impairment, soft tissue sensitivity. Impairments are contributing to the following functional limitations: [facility] score of 64% disability, requires CG-min A with bed mobilty, sit to stand, transfers, and only tolerating a few steps with RW. Requires skilled PT intervention to remediate the above impairments to improve functional transfer capability to a safe level, with family support for continued rehab at home with HHPT, or outpatient if he has transportation. Patient is assessed as Moderate [id number] based on the following: History: see comorbidities Examination: See above impairments and functional limitations Presentation: Evolving Decision Making: Moderate, 45 min Goals: Goals X1 week 1. Supine-Sit close supervision, RW 2. Sit-Supine close supervision, RW 3. Sit-Stand close supervision, RW 4. Stand-Sit close supervision, RW 5. Bed-Chair close supervision, RW 6. Chair-Bed close supervision, RW 7. Gait 20 ft, RW, close supervision, WBAT L LE, steady. 8. Stairs 3, with rail, CG, crutch or SPC oppsite hand of rail. 9. Independent with home exercise program 10. Balance Fair with RW with dynamic and static weightbearing, good with all sitting activities. Plan of Care/Treatment Plan: 1-2x/day, 7 days/week x 1 week. Plan of care has been reviewed with the [employer] providing the service under Physical Therapy direction. Initiate Physical Therapy intervention for strengthening, bed mobility, transfers, gait, stairs, balance training, use of assistive device. DISCHARGE RECOMMENDATIONS: Home with family support of / caregiving, and HHPT. Outpatient appropriate if transportation allows. Patient will require RW for safety with functional transfers and ambulation. TREATMENT CODE/TIME: 35677, [id number]
[2020-08-25] MEDS: Ondansetron 4 MG/2 ML VIAL IVP (11:58)
--- NOTE | 2020-08-25 14:44 | W.PM.PROGNOT ---
Date of Service Date of service: 08/25/20 Time of Service: 14:44 Assessment and Plan Assessment and plan (1) Hip fracture: Start date: 08/25/20 Start time: 14:46 Status: Acute Assessment and plan: Post op day one as expected multiple pain modalities Pulmonary tolieting PT evaluation Perez until better able to ambulate Pain with ambulation at this time Follow ortho recommendation Teds/scd Qualifiers: Encounter type: subsequent encounter Fracture type: closed Laterality: left Fracture healing: with routine healing Qualified Code(s): S72.002D - Fracture of unspecified part of neck of left femur, subsequent encounter for closed fracture with routine healing (2) Atrial fibrillation: Start date: 08/25/20 Start time: 14:48 Status: Acute Assessment and plan: Will restart DOAC tonight H/H stable Echo 08/23/20 Conclusion Left Ventricle : The left ventricle is normal size. Left ventricular systolic function is mildly reduced. There is normal left ventricular wall thickness. There is global hypokinesis of the left ventricle. The left ventricular diastolic function is normal. LVEF is 40-45%. Right Ventricle : Right ventricle is mild to moderately dilated. The right ventricular systolic function is normal. The RVSP is 34.3 mmHg. Atria : Left atrium is severely dilated. Right atrium is severely dilated. Aortic Valve : The Aortic valve is sclerotic. Aortic valve is trileaflet. There is no aortic valvular stenosis. No aortic regurgitation is present. Mitral Valve : Moderate mitral annular calcification. Mild mitral regurgitation. No evidence of mitral valve stenosis. Great Vessels : The aortic root is normal in size. The ascending aorta is normal in size. Aortic arch is not well visualized. The IVC collapses <50% with inspiration. Please see remainder of study for further details. As compared to study from 11/17/2017, there is no significant change. Qualifiers: Atrial fibrillation type: unspecified Qualified Code(s): I48.91 - Unspecified atrial fibrillation (3) Hematuria: Start date: 08/25/20 Start time: 14:49 Status: Acute Assessment and plan: resolved now. follow renal function, urology consult. Renal function improving will need imaging. Above case discussed with Dr. Perdomo who is in agreement. Qualifiers: Hematuria type: unspecified type Qualified Code(s): R31.9 - Hematuria, unspecified Subjective Subjective Patient reports: no new complaints Interval history since last seen: Daughter present for evaluation. Per daughter he denies CP, SOB, N/V/D. He was ambulatory to the commode. He wants to go home on discharge. Will defer to PT eval for dispo. Exam Const General: cooperative, healthy appearing, comfortable and no acute distress Nutritional Appearance: average body habitus Orientation: alert, awake and oriented x3 HENMT Head: normal to inspection, normocephalic and atraumatic Mouth: oral mucosae normal Chest Chest: normal inspection of the chest Resp Effort & Inspection: normal respiratory effort Auscultation: clear to auscultation bilaterally Cardio Rate: regular rate Rhythm: regular rhythm GI Inspection: normal to inspection Palpation: soft Auscultation: normal bowel sounds Skin General skin exam: no rashes or lesions noted Neuro General: patient alert and patient awake Extrem General: normal to inspection and no clubbing, cyanosis or edema Left lower extremity: abnormal ROM Other: drsg to Left hip c/d/i Objective Last Vital Signs Temp 37.8 C H 08/25/20 09:05 Pulse 65 08/25/20 09:05 Resp 16 08/25/20 09:05 BP 117/71 08/25/20 09:05 Pulse Ox 96 08/25/20 09:05 Laboratory Results - last 24 hr 08/22/20 08/25/20 08/25/20 18:11 10:20 10:20 WBC 13.10 H RBC 3.58 L Hgb 11.2 L Hct 33.4 L MCV 93.3 MCH 31.3 MCHC 33.5 RDW 12.2 Plt Count 165 MPV 11.1 H Immature Gran % 0.3 Neutrophils % 85.6 Lymphocytes % 6.1 Monocytes % 7.7 Eosinophils % 0.1 Basophils % 0.2 Nucleated RBC % 0 Absolute Neutrophils 11.21 H Absolute Lymphocytes 0.80 L Absolute Monocytes 1.01 H Absolute Eosinophils 0.01 Absolute Basophils 0.03 Sodium 130 L Potassium 4.4 Chloride 97 L Carbon Dioxide 26.5 Anion Gap 6.5 BUN 25 H Creatinine 1.23 Estimated GFR/1.73 m2 56.34 Glucose 178 H Calcium 8.5 SARS-CoV-2 (PCR) Not Applicable Nasopharyn COVID-19 PCR Negative Ref Test Perform Site [facility] [employer]
--- NOTE | 2020-08-25 15:37 | PDOC.CMPRO ---
- If Service Date Differs Date of service: 08/25/20 Time of Service: 15:37 Care Management Progress Note S/O: Mich remains acute today CM reviewed plan with his daughter and provider. He was able to work with PT today and get up to the chair. Daughter wants him to return home she does not want him to go to a SNF facility. Post op day 1 will continue to have PT over the weekend and possible discharge on Thursday with new home health, PT. If Mich is in need of additional days will discuss swing bed for a short stay on Thursday. His daughter will plan to be with him at home during the day and her friend on nights. CM did review options for raised toilet seat which she will look at both Nadja and Jack. A:Mich is a 80 year old patient admitted with a left hip fracture repaired on 08/24/20 P:Mich will be discharged home when medically ready. New home health services for PT. He has a FWW at home. Daughter will obtain a raised toilet seat. Daughter to transport home at time of discharge.
[2020-08-25 15:47] VITALS: BP 131/73; PULSE 71; RESP 18; TEMP 37.2; O2SAT 98
[2020-08-25 19:40] VITALS: BP 98/63; PULSE 78; RESP 18; TEMP 36.6; O2SAT 97
[2020-08-25 22:17] VITALS: BP 133/77
[2020-08-25] MEDS: Apixaban 5 MG TAB PO (22:52)
[2020-08-25] MEDS: Simvastatin 40 MG TAB PO (22:52)
[2020-08-26 04:58] VITALS: BP 137/86; PULSE 75; RESP 16; TEMP 36.3; O2SAT 96
[2020-08-26] MEDS: Acetaminophen 325 MG TAB 650 MG PO ×2 (06:39→11:52)
[2020-08-26 07:29] VITALS: BP 119/75; PULSE 77; RESP 17; TEMP 37.1; O2SAT 97
[2020-08-26 07:47] LABS: Abs Immature Grans 0.04 10^3/uL (0.0-0.06); Absolute Basophil Count 0.01 10^3/uL (0.0-0.2); Absolute Eosinophil Count 0.02 10^3/uL (0.0-0.7); Absolute Lymphocyte Count 0.81 10^3/uL (1.2-3.4); Absolute Monocyte Count 0.86 10^3/uL (0.1-0.8); Absolute Neutrophil Count 8.77 10^3/uL (1.2-6.7); Basophils % 0.1; Eosinophils % 0.2; HCT 30.5 % (40.0-50.0); HGB 10.4 g/dL (13.5-17.5); Immature Grans % 0.4; Lymphocytes % 7.7; MCH 31.5 pg (27.0-33.0); MCHC 34.1 % (32.0-36.0); MCV 92.4 fL (80-95); MPV 12.1 fL (8.0-11.0); Monocytes % 8.2; Neutrophils % 83.4; Nucleated RBC 0 %; Platelet Count 148 10^3/uL (130-400); RDW 12.2 % (11.8-14.1); RDW-SD 41.2 fL; WBC 10.51 10^3/uL (4.4-10.8)
[2020-08-26 07:59] LABS: Anion Gap 7.3 mmol/L (3-11); BUN 31 mg/dL (7-18); CO2 25.7 mmol/L (21.0-32.0); Calcium 8.9 mg/dL (8.5-10.1); Chloride 97 mmol/L (98-107); Glucose 134 mg/dL (74-106); Potassium 4.4 mmol/L (3.5-5.1); Sodium 130 mmol/L (136-145)
[2020-08-26] MEDS: Apixaban 5 MG TAB PO (08:53)
[2020-08-26] MEDS: Docusate Sodium 100 MG CAP PO (08:53)
[2020-08-26] MEDS: Omeprazole 20 MG CAPCR 40 MG PO (08:53)
[2020-08-26] MEDS: Potassium Chloride 10 MEQ CAPCR PO (08:53)
[2020-08-26] MEDS: Losartan 50 MG TAB 100 MG PO (08:53)
[2020-08-26] MEDS: Triamcinolone 0.1% OINT 15 GM TUBE TP (08:53)
[2020-08-26] MEDS: Vitamins B Comp w/C TAB 1 TAB PO (08:53)
--- NOTE | 2020-08-26 11:47 | DSE_ITS ---
Date of service: 08/26/20 Time of Service: 11:48 DS: Diagnosis Discharge Diagnosis (1) Hip fracture: Start date: 08/26/20 Start time: 11:48 Status: Acute Asessment and Plan: Post op day 2, doing well, Routine post op care Transitioning to SB status for further management of PT Daughter concerned patient unable to get self out of bed, will swing for further PT (2) Atrial fibrillation: Start date: 08/26/20 Start time: 11:49 Status: Chronic Asessment and Plan: Rate controlled, continue regimen (3) Hematuria: Start date: 08/26/20 Start time: 11:49 Status: Resolved Asessment and Plan: Voiding trial. above case discussed with Dr. Perdomo who is in agreement. 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 In the ED he was found to have a femoral neck fx. He is on a DOAC for AF, he was taken off 48 hours prior to OR. Left posterior hip press fit hemiarthroplasty was preformed on 08/24. Patient has been doing well postoperatively. His daughter would like him to be able to stand up on his home prior to going home. He is able to stand with assistance therefore would benefit from PT. He is being transitioned to for PT. He denies CP, SOB, N/V/D Home Meds and New Rx's Prescriptions: No Action simvastatin [Zocor] 40 MG tablet 40 mg PO HS Qty: 1 RF: 0 triamcinolone acetonide 80 GM ointment 30 gm Topical TID PRNRF: 0 Eliquis 5 MG tablet 5 mg PO BID Qty: 60 RF: 0 omeprazole 40 MG capsule,delayed release(DR/EC) 40 mg PO BID RF: 0 ipratropium-albuterol 0.5 mg-3 mg(2.5 mg base)/3 mL Solution For Nebulization 3 ml INHALATION QID PRNRF: 0 triamcinolone acetonide [Aristocort] 0.1 % Ointment 1 applic TOPICAL TID RF: 0 losartan 100 mg Tablet 100 mg PO DAILY RF: 0 vitamin B complex [Vitamins B Complex] Capsule 1 cap PO DAILY RF: 0 potassium chloride [Klor-Con M20] 20 MEQ tablet,ER particles/crystals 10 meq PO DAILY RF: 0 albuterol sulfate [Ventolin HFA] 90 mcg/actuation Hfa Aerosol Inhaler See Rx Instructions .ROUTE .COMPLEX PRNRF: 0 Discharge Instructions Additional Instructions: Transition to SB Activity:: Activity as Tolerated Equipment/Supplies:: No Equipment Needed Diet:: Low Sodium Discharge Orders Discharge Orders: Discharge Order (Routine); Ordered 08/26/20 Ordered By: Vesna Alcantara DS: Summary Status at Discharge Functional status at discharge: uses cane/walker Overall status at discharge: patient is progressing back to baseline Mental Status: mental status grossly normal Speech and Movement: speech and movement normal Mood: congruent mood Affect: normal affect Exam Const General: cooperative, healthy appearing, comfortable and no acute distress Nutritional Appearance: average body habitus Orientation: alert, awake and oriented x3 HENMT Head: normal to inspection, normocephalic and atraumatic Mouth: oral mucosae normal Chest Chest: normal inspection of the chest Resp Effort & Inspection: normal respiratory effort Auscultation: clear to auscultation bilaterally Cardio Rate: regular rate Rhythm: regular rhythm GI Inspection: normal to inspection Palpation: soft Auscultation: normal bowel sounds Skin General skin exam: no rashes or lesions noted Neuro General: patient alert and patient awake Extrem General: normal to inspection and no clubbing, cyanosis or edema Left lower extremity: abnormal ROM Psych Mental Status: mental status grossly normal Speech and Movement: speech and movement normal Mood: congruent mood Affect: normal affect DS: Data Vitals/I&O Vitals and I&O: Vital Signs Temperature 37.1 C 08/26/20 07:29 Temperature Source Temporal Artery Scan 08/26/20 07:29 Pulse 77 08/26/20 07:29 Pulse Rhythm Irregular 08/26/20 09:31 Pulse 73 08/22/20 19:50 Respiratory Rate 17 08/26/20 07:29 Respiratory Effort 08/26/20 09:31 Respiratory Depth Normal 08/26/20 09:31 Respiratory Pattern Normal 08/26/20 09:31 Blood Pressure 119/75 08/26/20 07:29 Blood Pressure Mean 102 08/22/20 19:31 Blood Pressure Position Sitting 08/22/20 16:23 Pulse Oximetry 97 08/26/20 07:29 Respiratory End-tidal CO2 21 08/24/20 15:25 Oxygen Delivery Method Room Air 08/26/20 07:29 Oxygen Flow Rate 0 08/26/20 07:29 Pain Level 3 08/26/20 07:29 Comment 08/25/20 19:40 Intake & Output 08/25/20 08/25/20 08/26/20 11:59 23:59 11:59 Intake Total 50 / 290 240 / 290 250 / 250 Output Total 900 / 1550 650 / 1550 350 / 350 Balance -850 / -1260 -410 / -1260 -100 / -100 Intake: IV 50 / 50 Oral 240 / 240 250 / 250 Output: Urine 900 / 1550 650 / 1550 350 / 350 Other: Urine Color Dark Princess Light Princess Yellow Urine Appearance Clear Clear Clear Data Completed and Pending Completed studies during hospitalization [Text1]: Exam(s) a RAD:XR hip LT complete & AP pelvis EXAM: XR HIP LT COMPLETE AP PELVIS INDICATION: Postop. COMPARISON: CR,XR XR HIP LT COMPLETE AP PELVIS from 08/22/2020 CR XR SHOULDER LT COMPLETE 2+V from 08/23/2020 TECHNIQUE: 2D digital imaging was performed. FINDINGS: A left hip prosthesis has been placed. The alignment appears satisfactory. There is residual postoperative air in the soft tissues. Bladder catheter in p lace. Vascular calcifications. Left lower pelvic surgical clips IMPRESSION: S/p placement of left hip prosthesis. Exam(s) a US:US echocardiogram APPROVED REPORT EXAM: Comprehensive 2D, Doppler, and color-flow Echocardiogram Patient Location: In-Patient Room/Bed: [facility] Learning Operations Specialist: aMrilynn Jade RDCS (AE) Indications: CHF, Evaluate LF function Other Information Study Quality: Adequate Conclusion Left Ventricle : The left ventricle is normal size. Left ventricular systolic function is mildly reduced. There is normal left ventricular wall thickness. There is global hypokinesis of the left ventricle. The left ventricular diastolic function is normal. LVEF is 40-45%. Right Ventricle : Right ventricle is mild to moderately dilated. The right ventricular systolic function is normal. The RVSP is 34.3 mmHg. Atria : Left atrium is severely dilated. Right atrium is severely dilated. Aortic Valve : The Aortic valve is sclerotic. Aortic valve is trileaflet. There is no aortic valvular stenosis. No aortic regurgitation is present. Mitral Valve : Moderate mitral annular calcification. Mild mitral regurgitation. No evidence of mitral valve stenosis. Great Vessels : The aortic root is normal in size. The ascending aorta is normal in size. Aortic arch is not well visualized. The IVC collapses <50% with inspiration. Please see remainder of study for further details. As compared to study from 11/17/2017, there is no significant change. Exam(s) a RAD:XR shoulder LT complete 2+V EXAM: XR SHOULDER LT COMPLETE 2+V CLINICAL HISTORY: left shoulder trauma. TECHNIQUE: 2D digital imaging was performed. COMPARISON: CR RIGHT SHOULDER COMPLETE from 12/25/2017 FINDINGS: There is no evidence of acute fracture or dislocation. However, there is si gnificant diminution of the subacromial space consistent with probable chronic rotator cuff pathology. Probably full thickness tear of the rotator cuff mechanism. Downgoing osteophytes evident at the AC joint level. Mild degenerative changes in the glenohumeral joint. No soft tissue calcifications. IMPRESSION: No fractures evident in the left shoulder but there is suspicion for chronic full-thickness rotator cuff tear. If clinically indicated this could be confirmed with MRI study. Labs on day of discharge: Labs from last 24 hours 08/26/20 08/26/20 07:05 07:05 WBC 10.51 RBC 3.30 L Hgb 10.4 L Hct 30.5 L MCV 92.4 MCH 31.5 MCHC 34.1 RDW 12.2 Plt Count 148 MPV 12.1 H Immature Gran % 0.4 Neutrophils % 83.4 Lymphocytes % 7.7 Monocytes % 8.2 Eosinophils % 0.2 Basophils % 0.1 Nucleated RBC % 0 Absolute Neutrophils 8.77 H Absolute Lymphocytes 0.81 L Absolute Monocytes 0.86 H Absolute Eosinophils 0.02 Absolute Basophils 0.01 Sodium 130 L Potassium 4.4 Chloride 97 L Carbon Dioxide 25.7 Anion Gap 7.3 BUN 31 H Creatinine 1.00 Estimated GFR/1.73 m2 >= 60.00 Glucose 134 H Calcium 8.9 [facility] Medical History (Updated 08/26/20 @ 11:49 by Vesna Alcantara NP) Benign hypertension Deaf Epiglottitis Hypercholesterolemia occluded carotid artery Peripheral vascular disease Surgical History ear surgery from records, left or right not noted, no date.HE ORIF of supercondylar fx of the R femur (05/25/88) removal of compression screw and side plate from right femur (09/16/91) Right carotid endarterectomy from records, no date.HE Social History Smoking/Tobacco Use Status: Never Smoking risk assessment performed?: Yes Alcohol Intake: never Drug use: Never Substance use type: does not use Do you feel safe at home: Yes Do you feel safe in your relationship?: Yes
[2020-08-26] MEDS: hydrOXYzine HCL 25 MG TAB PO (11:52)
--- NOTE | 2020-08-26 12:59 | PT.INTREAT ---
Date of service: 08/26/20 Time of Service: 08:45 PT Notes Visit Reasons: HIP FRACTURE Inpatient Physical Therapy Treatment Note [facility] Date: 08/26/2020 PRECAUTIONS: Fall, WBAT L, Deaf/Mute SUBJECTIVE: Mich indicates that he is agreeable to participating in PT. OBJECTIVE: PAIN: Patient grimaced to indicate pain with gait training and transfers BED MOBILITY/TRANSFERS Supine-sit: Min A with HOB at 40 degrees Sit-stand: CGA Stand-sit: CGA Bed-chair: CGA + SBA Chair-bed: CGA + SBA GAIT Assistive Device: FWW Weight bearing: WBAT L Assist: CGA + SBA Distance: 15' Deviation: Increased L hip pain THEREX: Patient completed a LE strengthening program, in a supine position, as per flow sheet. ASSESSMENT: Patient tolerated session well with complaint of increasing left hip pain with transfers and gait. He was able to tolerate a progression in gait distance with FWW support and CGA + SBA. He would benefit from continued gait and transfer training as well as global strengthening for improved mobility and activity tolerance. PLAN: Continue with global strengthening and gait and transfer training. TREATMENT CODE/TIME: 25 minutes; [id number], [id number]
--- NOTE | 2020-08-26 13:04 | NUR.NOTE ---
pt being discharged from acute to swingbed.Nursing Note:
--- NOTE | 2020-08-27 08:30 | INDS_ITS ---
Date of service: 08/27/20 Time of Service: 08:30 PT Notes Visit Reasons: HIP FRACTURE Physical Therapy Inpatient Discharge Summary Date: 08/27/20 Referring Doctor: Yayo Blancas MD PT Orders: PT CONSULT: S/P ortho surgery, WBAT with assist device Precautions: Standard. WBAT on L LE. Deaf and mute. Patient Profile/Admitting Diagnosis: 80 year old male S/P L posterior hemiarthroplasty 08/24/20, as a result of mechanical fall. Patient convered to swing bed level as of 08/26/2020 and will be re-evalauted for continued skilled PT services. PMHX: Medical History (Updated 08/22/20 @ 18:38 by Adrian Mclean MD) Benign hypertension Deaf Epiglottitis Hypercholesterolemia occluded carotid artery Peripheral vascular disease Surgical History ear surgery from records, left or right not noted, no date.HE ORIF of supercondylar fx of the R femur (05/25/88) removal of compression screw and side plate from right femur (09/16/91) Right carotid endarterectomy Social History/Home Situation: Lives alone, functioned independently with a supportive daughter near by. His home is on one level, with 3 stairs to enter with rail. He is deaf mute, utilizes modified sign language to communicate with his family. Current Functional Limitations: Requires use of RW, and C G to min A for all transfers, bed mobility, and ambulation. Equipment Owned/DME: Daughter says maybe a walker. She will look around. Subjective: Expresses pain in L hip but is agreeable to walk with PT. Refused Nurse Deja when pain pill was offered as he complains that pain pill makes him nauseous. Objective: General Observation: Lying reclined in hospital bed, with IV L arm, song, bandage posterior lateral L hip. Mental Status: Alert and oriented x 4. Deaf and mute. Able to read sign language and written language to communicate. Pain: 6/10 ROM: Right Upper Extremity: WFL Left Upper Extremity: WFL Right Lower Extremity: WFL Left Lower Extremity: Limited secondary to pain. Motion observed with transfers at 100* hip flexion, abduction 10*, avoids motion otherwise. In standing lack full extension due to pain of about 20* hip ext. L knee 0-90*, pain with movement. Ankle WNL Strength: Right Upper Extremity: WNL Left Upper Extremity: WNL Right Lower Extremity: WNL Left Lower Extremity: Grossly 3-/5 the left hip. 4-/5 in the left knee and ankle Sensation/palpation: Intact as to pain in B LE Bed Mobility/Transfers: Sit to stand SBA Stand to sit SBA Bed to chair SBA Chair to bed SBA Gait: 20 feet of in room ambulation using front wheeled walker with standby assist. Expresses increased pain in the left hip with activity. THERA EX: Visual cueing and written instruction provided to correctly perform seated exercises consiting of quadriceps setting x 10 and ankle DF/PF x 20 with no obvious pain level increase. Balance: Static Sitting: Good Dynamic Sitting: Good Static Standing: Fair Dynamic Standing: Fair Informed Consent/Education: Patient is agreeable to continuing with skilled services to regain highest mobility level in anticipation of discharge to home. Assessment: Patient converts to swing bed level as of 08/26/2020. Patient is a 80 year old male referred to physical therapy services with the diagnosis of L posterior hip hemiarthroplasty. Patient presents with clinical signs and symptoms consistent with post op referral, in the prescense of deaf and mute condition limiting some communication. He demonstrates the following impairment level findings: L LE weakness and mobility deficits, poor tolerance to weightbearing due to pain and pain induced motor control impairment, soft tissue sensitivity. Impairments are contributing to the following functional limitations: AMPAC score of 64% disability, requires CG-min A with bed mobilty, sit to stand, transfers, and only tolerating a few steps with RW. Requires skilled PT intervention to remediate the above impairments to improve functional transfer capability to a safe level, with family support for continued rehab at home with HHPT, or outpatient if he has transportation. Goals: Goals X1 week 1. Supine-Sit close supervision, RW NOT MET 2. Sit-Supine close supervision, RW NOT MET 3. Sit-Stand close supervision, RW NOT MET 4. Stand-Sit close supervision, RW NOT MET 5. Bed-Chair close supervision, RW NOT MET 6. Chair-Bed close supervision, RW NOT MET 7. Gait 20 ft, RW, close supervision, WBAT L LE, steady NOT MET 8. Stairs 3, with rail, CG, crutch or SPC oppsite hand of rail NOT MET 9. Independent with home exercise program NOT MET 10. Balance Fair with RW with dynamic and static weight bearing, good with all sitting activities NOT MET DISCHARGE RECOMMENDATIONS: Home with family support of 06/04 caregiving, and PT. Outpatient appropriate if transportation allows. Patient will require RW for safety with functional transfers and ambulation. TREATMENT CODE/TIME: SC Thank you for the opportunity to participate in the care of this patient. Jeanie Shore PT, DPT, CLT [facility] [place], [place]
== END 2020-08-26 13:10 | disposition swing bed (61) | DRG 522 ==
LOC: ER 19:04 → MS 20:36
PROVIDERS: Nurse Practitioner Acute Care; Nurse Practitioner Family; Student in an Organized Health Care Education/Training Program; Admitting Provider General Practice; Emergency Provider Physician Assistant; PCP Family Medicine; Visit Provider General Practice
PROC: 0SRS0JA Replacement of Left Hip Joint, Femoral Surface with Synthetic Substitute, Uncemented, Open Approach (ICD-10-PCS; CPT 27125; principal; 2020-08-24 10:00)
DX: S72.002A Fracture of unspecified part of neck of left femur, initial encounter for closed fracture (principal); S40.012A Contusion of left shoulder, initial encounter; I48.91 Unspecified atrial fibrillation; Z66 Do not resuscitate; H91.3 Deaf nonspeaking, not elsewhere classified; Z79.01 Long term (current) use of anticoagulants; I45.10 Unspecified right bundle-branch block; I10 Essential (primary) hypertension; E78.00 Pure hypercholesterolemia, unspecified; I73.9 Peripheral vascular disease, unspecified; R31.9 Hematuria, unspecified; W11.XXXA Fall on and from ladder, initial encounter
CPT/HCPCS: 27236; 36415; 73552; 80048; 80053; 86850; 86900; 86901; 93005; 93306; 96374; 97110; 97162; 97530; 99222; 99232; 99233; 99239; 99254; 99285; NC; U0003; 70450; 71045; 73030; 73502; 73700; 83880; 85025; 85610; 85730; 93010; J0131; J0171; J0690; J2370; J2405; J2704; J3010

== ENCOUNTER 2020-08-26 13:10 | Inpatient (IN) | payer MEDICARE, SELFPAY ==
--- NOTE | 2020-08-26 12:55 | HPE_ITS ---
Date of service: 08/26/20 Time of Service: 12:55 Assessment and Plan Assessment and plan (1) Hip fracture: Start date: 08/26/20 Start time: 12:57 Status: Acute Assessment and plan: Repair on 08/24 after sustaining a fall on 08/22, DOAC was held 48 hours prior to surgery. Post-operatively doing well Transitioned to SB for PT Continue pain management Voiding trial IS Qualifiers: Encounter type: subsequent encounter Fracture healing: with routine healing Fracture type: closed Laterality: left Qualified Code(s): S72.002D - Fracture of unspecified part of neck of left femur, subsequent encounter for closed fracture with routine healing (2) Displaced fracture of left femoral neck: Start date: 08/26/20 Start time: :13 Status: Acute Assessment and plan: as above above case discussed with Dr. Pedromo who is in agreement. 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 In the ED he was found to have a femoral neck fx. He is on a DOAC for AF, he was taken off 48 hours prior to OR. Left posterior hip press fit hemiarthroplasty was preformed on 08/24. Patient has been doing well postoperatively. His daughter would like him to be able to stand up on his home prior to going home. He is able to stand with assistance therefore would benefit from PT. He is being transitioned to SB for PT. He denies CP, SOB, N/V/ Review of Systems All systems reviewed & are unremarkable except as noted in HPI and below PFSH Medical History Benign hypertension Deaf Epiglottitis Hypercholesterolemia occluded carotid artery Peripheral vascular disease Surgical History ear surgery from records, left or right not noted, no date.HE ORIF of supercondylar fx of the R femur (05/25/88) removal of compression screw and side plate from right femur (09/16/91) Right carotid endarterectomy from records, no date.HE Social History Smoking/Tobacco Use Status: Never Smoking risk assessment performed?: Yes Alcohol Intake: never Drug use: Never Substance use type: does not use Do you feel safe at home: Yes Do you feel safe in your relationship?: Yes Meds Home Medications and Allergies Home Medications Medication Instructions Recorded Confirmed Type simvastatin [Zocor] 40 mg PO HS #1 05/26/13 08/22/20 History triamcinolone acetonide 30 gm TOPICAL TID PRN script 05/26/13 08/22/20 History Eliquis 5 mg PO BID #60 tab 11/17/17 08/22/20 Rx omeprazole 40 mg PO BID 12/25/17 08/22/20 History albuterol sulfate [Ventolin HFA] See Rx Instructions .ROUTE 08/22/20 08/22/20 History .COMPLEX PRN ipratropium-albuterol 3 ml INHALATION QID PRN 08/22/20 08/22/20 History losartan 100 mg PO DAILY 08/22/20 08/22/20 History potassium chloride [Klor-Con M20] 10 meq PO DAILY 08/22/20 08/22/20 History triamcinolone acetonide 1 applic TOPICAL TID 08/22/20 08/22/20 History [Aristocort] vitamin B complex [Vitamins B 1 cap PO DAILY 08/22/20 08/22/20 History Complex] Allergies Allergy/AdvReac Type Severity Reaction Status Date / Time lactose Allergy Swelling/Ed Unverified 08/22/20 18:33 juan pablo Exam Narrative Exam Narrative: Const General: cooperative, healthy appearing, comfortable and no acute distress Nutritional Appearance: average body habitus Orientation: alert, awake and oriented x3 HENMT Head: normal to inspection, normocephalic and atraumatic Mouth: oral mucosae normal Chest Chest: normal inspection of the chest Resp Effort & Inspection: normal respiratory effort Auscultation: clear to auscultation bilaterally Cardio Rate: regular rate Rhythm: regular rhythm GI Inspection: normal to inspection Palpation: soft Auscultation: normal bowel sounds Skin General skin exam: no rashes or lesions noted, c/d/i surgical incision with drsg Neuro General: patient alert and patient awake Extrem General: normal to inspection and no clubbing, cyanosis or edema Left lower extremity: abnormal ROM, due to post op Psych Mental Status: mental status grossly normal Speech and Movement: speech and movement normal Mood: congruent mood Affect: normal affect COVID-19 Screening Have you, or household traveled for leisure in last 14 days?: No
--- NOTE | 2020-08-26 14:25 | PDOC.CMPRO ---
- If Service Date Differs Date of service: 08/26/20 Time of Service: 14:25 Care Management Progress Note S/O: Mich will transition to swing bed 1 level of care today for short term PT and OT. His daughter agrees to level of care as well as Mich. He does not want to go to a SNF if he does not have to. Goals will be to transfer independently with FWW. Plan will be for his daughter to be with him during the day at home however he needs to be safe with transfers. She has her own back issues and would not be able to pick him up if he falls. Mich is making slow progress with PT. CM explained to patient and his daughter the plan would be short term 7 to 10 days for PT and OT. Benefits reviewed by CM, contract reviewed and verbal agreement to SB1, SB1 insurance call sent. A: Mich is a 80 year old male admitted with hip fracture status post repair now SB1 for PT and OT . P Short stay for SB1 PT/OT plan will be to return home when he meets his goals with home health for PT/OT through home health services. Daughter will transport home at time of discharge.
[2020-08-26] MEDS: Triamcinolone 0.1% OINT 15 GM TUBE TP ×2 (14:39→21:16)
[2020-08-26 16:10] VITALS: BP 104/64; PULSE 85; RESP 17; TEMP 37; O2SAT 97
[2020-08-26] MEDS: Apixaban 5 MG TAB PO (21:15)
[2020-08-26] MEDS: Simvastatin 40 MG TAB PO (21:15)
[2020-08-26] MEDS: Omeprazole 20 MG CAPCR 40 MG PO (21:16)
[2020-08-26] MEDS: Docusate Sodium 100 MG CAP PO (21:16)
[2020-08-26 23:31] VITALS: BP 117/71; PULSE 68; RESP 18; TEMP 36.1; O2SAT 97
[2020-08-27 07:21] VITALS: BP 126/71; PULSE 51; RESP 16; TEMP 37.5; O2SAT 98
[2020-08-27 07:23] VITALS: PULSE 64
[2020-08-27] MEDS: Omeprazole 20 MG CAPCR 40 MG PO ×2 (07:47→21:19)
[2020-08-27] MEDS: Vitamins B Comp w/C TAB 1 TAB PO (07:47)
[2020-08-27] MEDS: Apixaban 5 MG TAB PO ×2 (07:47→21:20)
[2020-08-27] MEDS: Potassium Chloride 10 MEQ CAPCR PO (07:48)
[2020-08-27] MEDS: Losartan 50 MG TAB 100 MG PO (07:48)
[2020-08-27] MEDS: Docusate Sodium 100 MG CAP PO ×2 (07:48→21:20)
--- NOTE | 2020-08-27 09:03 | IN_ITS ---
Date of service: 08/27/20 Time of Service: 09:03 PT Notes Visit Reasons: LEFT FEMUR FRACTURE Physical Therapy Swing Bed Level 1 Initial Evaluation Date: 08/27/20 Referring Doctor: Vesna Alcantara NP PT Orders: PT CONSULT: Eval/Treat Precautions: Standard. WBAT on L LE. Verbally and hearing impaired. Posterolateral hip precautions. Patient Profile/Admitting Diagnosis: Mich convered to swing bed level 1 as of 08/26/2020 for continued rehabilitation. He 80 year old male S/P L posterior hemiarthroplasty on postoperative day 3 as a result of mechanical fall. PMHX: Medical History (Updated 08/22/20 @ 18:38 by Adrian Mclean MD) Benign hypertension Deaf Epiglottitis Hypercholesterolemia occluded carotid artery Peripheral vascular disease Surgical History Ear surgery from records, left or right not noted, no date.HE ORIF of supercondylar fx of the R femur (05/25/88) removal of compression screw and side plate from right femur (09/16/91) Right carotid endarterectomy Social History/Home Situation: Lives alone, functioned independently with a supportive daughter near by. His home is on one level, with 3 stairs to enter with rail. He is deaf mute, utilizes modified sign language to communicate with his family. Equipment Owned/DME: FWW Subjective: Expresses pain in L hip but is agreeable to walk with PT. Refused Nurse Deja when pain pill was offered as he complains that pain pill makes him nauseous. Objective: General Observation: Seated onreclining chair. Meeting To [employer] Ag over posterolateral surgical incision. Mental Status: Alert and oriented x 4. Deaf and mute. Able to read sign language and written language to communicate. Pain: 6/10 ROM: Right Upper Extremity: WFL Left Upper Extremity: WFL Right Lower Extremity: WFL Left Lower Extremity: Limited secondary to pain. Motion observed with transfers at 100* hip flexion, abduction 10*, avoids motion otherwise. In standing lack full extension due to pain of about 20* hip ext. L knee 0-90*, pain with movement. Ankle WNL Strength: Right Upper Extremity: WNL Left Upper Extremity: WNL Right Lower Extremity: WNL Left Lower Extremity: Grossly 3-/5 the left hip. 4-/5 in the left knee and ankle Sensation/palpation: Intact as to pain in B LE Bed Mobility/Transfers: Sit to stand SBA Stand to sit SBA Bed to chair SBA Chair to bed SBA Gait: 20 feet of in room ambulation using front wheeled walker with standby assist. Expresses increased pain in the left hip with activity. THERA EX: Visual cueing and written instruction provided to correctly perform seated exercises consisting of quadriceps setting x 10 and ankle DF/PF x 20 with no obvious pain level increase. Balance: Static Sitting: Good Dynamic Sitting: Good Static Standing: Fair Dynamic Standing: Fair Informed Consent/Education: Patient is agreeable to continuing with skilled services to regain highest mobility level in anticipation of discharge to home. Assessment: Patient converted to swing bed level as of 08/26/2020. Patient is a 80 year old male referred to physical therapy services with the diagnosis of L posterior hip hemiarthroplasty. Patient presents with clinical signs and symptoms consistent with post op referral, in the prescense of deaf and mute condition limiting some communication. He demonstrates the following impairment level findings: L LE weakness and mobility deficits, poor tolerance to weightbearing due to pain and pain induced motor control impairment, soft tissue sensitivity. Patient presents with clinical signs and symptoms consistent with current/admitting diagnoses that have resulted to mobility limitations, gait instability, generalized weakness, and impairment of motor control as demonstrated by the following impairment level findings: 1. Decreased strength to B LE major muscle groups 2. Impaired sitting/standing balance 3. Impaired activity tolerance 4. Limitation of joint range of motion in L hip Impairments are contributing to the following functional limitations: 1. Dependent bed mobility skills 2. Increased dependence with transfers 3. Inability to safely ambulate without assistive device and physical assistance 4. Increase completion time for mobility ADL performance 5. Increased fall risk 6. Inability to negotiate steps alone safely Patient is assessed as a 55169 moderate complexity based on the following: History: 80-year-old male with impairment level findings, functional deficits and past medical history as listed above Examination:Demonstrable impairment in strength, balance, and range of motion with underlying impairments and functional limitations as documented above Presentation:Evolving Decision Makin moderate complexity Goals X1 week 1. Supine-Sit independent 2. Sit-Supine independent 3. Sit-Stand independent 4. Stand-Sit independent 5. Bed-Chair independent 6. Chair-Bed independent 7. Independent gait on level surface with use of least restrictive device for at least 300 feet without report of pain nor dyspnea 8. Independent stair negotiation while holding onto bilateral rails for at least 10 steps without report of pain nor dyspnea 9. Independent with home exercise program 10. Good static and dynamic standing balance/tolerance DISCHARGE RECOMMENDATIONS: Home with family support of 06/04 caregiving, and PT. Outpatient appropriate if transportation allows. TREATMENT CODE/TIME: 45350 x 25 minutes, 11385 x 12 minutes beginning at 9:03 AM. Thank you for the opportunity to participate in the care of this patient. Jeanie Shore PT, DPT, CLT [facility] [place], [place]
[2020-08-27] MEDS: Triamcinolone 0.1% OINT 15 GM TUBE TP ×3 (09:22→21:21)
--- NOTE | 2020-08-27 11:35 | W.NUTRFU ---
Date of service: 08/27/20 Time of Service: 11:35 Nutritional Follow up NOTE: 80 year old male admitted with left hip fracture and repair. PMH: Deaf, mute here for rehab following surgery. BMI wnl for age. Following heart healthy diet with excellent intake. Not at nutritional risk at this time. Will continue to follow. Time Spent in Nutritional Counseling and Treatment: 0
[2020-08-27] MEDS: Polyethylene Glycol 3350 17 GM PACKET PO (14:00)
[2020-08-27 15:33] VITALS: BP 100/63; PULSE 89; RESP 16; TEMP 36.3; O2SAT 99
--- NOTE | 2020-08-27 16:14 | CHAPLAIN ---
Mich was made a swing bed patient today. He doesn't hear or speak. His daughter has been with him when I have visited. He was sleeping today when I stopped in. She said he had been walking with PT and was tired. I'll continue to visit.
[2020-08-27 21:15] VITALS: BP 119/66; PULSE 77; RESP 12; TEMP 37.6; O2SAT 97
[2020-08-27] MEDS: Simvastatin 40 MG TAB PO (21:19)
[2020-08-27] MEDS: Acetaminophen 325 MG TAB 650 MG PO (21:24)
[2020-08-27 23:24] VITALS: BP 120/62; PULSE 71; RESP 18; TEMP 36.6; O2SAT 97
--- NOTE | 2020-08-28 07:15 | OT.INNT ---
Date of service: 08/28/20 Time of Service: 07:15 Occupational Therapy Notes 08/28/20 OT consult received on 08/27/20 and OT was unable to see pt as of that date due to other providers working with pt. Patients chart was reviewed and pt has transitioned [facility] level of care, due to this OT will need a new referral from MD/JUTE BAG SEWER if OT services are still appropriate at this time. Emmy Epstein, OTR/L [facility] [place]
[2020-08-28 07:17] VITALS: BP 139/46; PULSE 100; RESP 17; TEMP 36.5; O2SAT 100
[2020-08-28] MEDS: Omeprazole 20 MG CAPCR 40 MG PO ×2 (08:43→20:30)
[2020-08-28] MEDS: Vitamins B Comp w/C TAB 1 TAB PO (08:43)
[2020-08-28] MEDS: Docusate Sodium 100 MG CAP PO ×2 (08:43→20:30)
[2020-08-28] MEDS: Losartan 50 MG TAB 100 MG PO (08:43)
[2020-08-28] MEDS: Potassium Chloride 10 MEQ CAPCR PO (08:43)
[2020-08-28] MEDS: Acetaminophen 325 MG TAB 650 MG PO ×3 (08:43→20:29)
[2020-08-28] MEDS: Apixaban 5 MG TAB PO ×2 (08:43→20:30)
[2020-08-28] MEDS: Triamcinolone 0.1% OINT 15 GM TUBE TP ×3 (08:43→20:30)
--- NOTE | 2020-08-28 09:45 | OTIE_ITS ---
Occupational Therapy Notes Inpatient Occupational Therapy [facility] Bed 1 Evaluation Date: 08/28/20 Referring Doctor:Santana Perdomo MD OT Orders: Non Urgent Eval and Treat Precautions: Fall, standard, DNR/DNI, hip precautions PATIENT PROFILE/ADMITTING DIAGNOSIS: Pt is an 80 year old male who is currently under [facility] Bed 1 rehabilitation status with a dx of S/P L posterior hemiarthroplasty from a mechanical fall. Past Medical History: Medical History (Updated 08/22/20 @ 18:38 by Adrian Mclean MD) Benign hypertension Deaf Epiglottitis Hypercholesterolemia occluded carotid artery Peripheral vascular disease Surgical History Ear surgery from records, left or right not noted, no date.HE ORIF of supercondylar fx of the R femur (05/25/88) removal of compression screw and side plate from right femur (09/16/91) Right carotid endarterectomy Social History/Home Situation: Pt lives in a private home alone and has a supportive daughter who lives near by. He is functionally (I) with his ADL routines pre pt report. It is unclear for OT to determine how much support pt receives at baseline level of function. Equipment owned/DME: FWW SUBJECTIVE: Pt was sitting in the chair when OT arrived. He was agreeable to OT session and notes that he would like to get washed up/perform his ADLs. OBJECTIVE: General Observation: Pleasant, deaf, non verbal, communicates with written communication. Mental Status: A&Ox3 Pain: c/o pain in (L) hip ROM: RUE AROM WFL L UE AROM WFL STRENGTH: RUE 4/5 throughout globally LUE 4/5 throughout globally FUNCTIONAL MOBILITY/ADLS: BATHING sitting in chair with max (A) Set up/clean up Bathing UE With visual cues for communication (I) face, (B) UE and abdomen Bathing LE (I) marlena area and (R) LE to knee, max (A) (L) LE DRESSING sitting in chair Dressing UE Min (A) don and doffing hospital gown Dressing LE Mod (A) don and doffing (B) socks GROOMING Pt denies brushing teeth/oral hygiene as he has no teeth, (I) with brushing hair in seated position. TOILETING NT EATING NT BALANCE: Static sitting Normal Dynamic Sitting Normal SPECIAL TESTS: Daily Activity Limitations Standardized Measure [facility] AM -PAC ?6 clicks? Daily Activity Inpatient Short Form: Raw score: 20 Standardized score: 42.03 CMS score: 38.32% INFORMED CONSENT/EDUCATION: Pt instructed in purpose of OT Consult and plan of care. ASSESSMENT: Patient is a 80-year-old male referred to occupational therapy services with diagnosis of S/P L posterior hemiarthroplasty. Patient presents with clinical signs and symptoms consistent with dx, as demonstrated by the following impairment level findings: Pain in his (L) hip from surgical intervention, decreased functional mobility required for ADLs, decreased standing ADLs, decreased functional activity tolerance. Impairments are contributing to the following functional limitations: Impairments in ADL/IADL and leisure activities, decreased functional activity tolerance. AMPAC score 20 Patient is assessed as a Low 42109 complexity based on the following: History: see above Examination: see functional limitations as noted above Presentation: evolving Decision Making: AMPAC score 20 GOALS Goals x1 week 1. Transfers (I) 2. Dressing Min (A) LE, (I) UE 3. Bathing (I) 4. Toileting (I) 5. Eating (I) PLAN OF CARE/TREATMENT PLAN: 1x/day, 5 days/ week x 1week Initiate Occupational Therapy Services for bathing, dressing, grooming, toileting, eating, transfer training. DISCHARGE RECOMMENDATIONS Based on pts current condition, assessment of functional limitations and impairments, OT recommends that pt return home with family support and care giving. TREATMENT TIME/MINUTES/CODES 45180, 29555, 25 minutes (09:10) Emmy Epstein OTR/L [facility]
--- NOTE | 2020-08-28 12:31 | PT.INTREAT ---
Date of service: 08/28/20 Time of Service: 11:00 PT Notes Visit Reasons: LEFT FEMUR FRACTURE Inpatient Physical Therapy Treatment Note [facility] Date: 08/28/2020 PRECAUTIONS: Fall, WBAT L SUBJECTIVE: Mich is agreeable to participating in PT. He indicates that he is feeling better today. Patient's daughter reports that he has been doing strengthening exercises independently throughout the day. OBJECTIVE: PAIN: Patient c/o L lateral thigh pain with activity. BED MOBILITY/TRANSFERS Supine-sit: SBA with HOB flat with use of leg senior biostatistician/group leader in a.m.; S with HOB flat without use of leg senior biostatistician/group leader in p.m. Sit-supine: SBA with HOB flat with use of leg senior biostatistician/group leader in a.m.; S with HOB flat without use of leg senior biostatistician/group leader in p.m. Sit-stand: SBA Stand-sit: SBA Bed-Chair: SBA Chair-bed: SBA GAIT Assistive Device: FWW Weight bearing: Full Assist: SBA in a.m.; S in p.m. Distance: 100' in a.m.; 80' x2 in p.m. Deviation: Step-through gait pattern, seated rest in p.m. THEREX: Patient was instructed in a LE strengthening program, in a seated position in both a.m. and p.m., as per flow sheet. STAIRS: Up/down 3x4 and 2x6 using B rails and a step-to pattern with SBA ASSESSMENT: Patient tolerated session with complaint of increased L hip pain with activity. He was able to tolerate a progression in gait distance with FWW support as well as the addition of stair training. PLAN: Continue with strengthening, stair, transfer, and gait training for improved mobility. TREATMENT CODE/TIME: Session 1: 35 minutes; 42904, 88416 Section 2: 20 minutes; 75849 x2
--- NOTE | 2020-08-28 12:32 | PHA.REVIEW ---
Pharmacy Admission Review - Admission Clinical Review (Last Reviewed 08/26/20 @ 12:56 by Vesna Alcantara NP) Displaced fracture of left femoral neck (Acute 08/22/20) Hip fracture (Acute) lactose Allergy (Unverified 08/22/20 18:33) Swelling/Edema Height 5 ft 8 in Weight 68.8 kg - Renal Dosing Medications needing adjustments: Reviewed (Crcl ~55 mL/min current meds okay) - Anticoagulation DVT Prohphylaxis: N/A Therapeutic Anticoagulation: Reviewed Medications: Apixaban - Opiate Usage Evaluate Pain Scale/Pains Meds: Reviewed Scheduled Bowel Reg ordered if on Opiates?: Yes - Relevant Labs Electrolytes, C-Reactive P, ESR: N/A - DM Control Insulin Dosing: N/A - Heart Failure/[place] EF%, SRINIVASA's, B-Blockers, Diuretics: N/A - BP Control BP Control: Blood Pressure 139/46 If elevated: N/A - Qtc Review If Elevated: Reviewed (QTc 492 on 08/23/20) - IV to PO Switch IV Medications: Reviewed - Home Meds Home Med List reviewed: Reviewed (Ipratropium may enhance the ulcerogenic effect of potassium, consider alternative dosage forms of potassium.) Relevent Home Meds Not ordered & why?: albuterol (PRN) - Current meds Current Medication Order Review: Reviewed - Comments Comments/Follow Ups: Watch VS, labs, SCr, and for med changes (need if additional BM meds, avoid QT prolonging meds)
[2020-08-28 16:17] VITALS: BP 113/63; PULSE 83; RESP 17; TEMP 36.6; O2SAT 99
[2020-08-28] MEDS: Simvastatin 40 MG TAB PO (22:09)
[2020-08-28 23:48] VITALS: BP 103/67; PULSE 56; RESP 17; TEMP 36.6; O2SAT 97
--- NOTE | 2020-08-29 07:08 | PDOC.CMPRO ---
- If Service Date Differs Date of service: 08/29/20 Time of Service: 07:09 Care Management Progress Note S/O:Mich remains swing bed for pt/ot plan will be for him to return home with his daughters assistance and new home health services for PT/OT. His daughter is supportive and will plan to be with him when he returns home. A:Mich is an 80 year old patient admitted after a fracture hip, repaired in swing bed for PT/OT with the goal of returning home with his daughter. P:Home with new home health services and family at time of discharge. CM has sent a referral to home health for PT/OT. His daughter will transport home at time of discharge.
--- NOTE | 2020-08-29 07:48 | OTTR_ITS ---
Date of service: 08/29/20 Time of Service: 07:15 Occupational Therapy Notes Occupational Therapy Inpatient Treatment Note Date: 08/29/20 PRECAUTIONS: Fall, Standard, DNR/DNI SUBJECTIVE: Pt was lying in bed when OT arrived. He was agreeable to OT session and notes that he would like to perform his ADLs this morning. OBJECTIVE: PAIN:6/10 pain in (L) leg per board in pts room FUNCTIONAL MOBILITY Rolling L/R: (I) Supine-sit: Min (A) due to pain in leg Sit-stand: SBA Stand-sit: SBA Bed-Chair: SBA BATHING: sitting on side of the bed with max (A) set up/clean up Upper Body: (I) washing face, (B) UE and abdomen Lower Body: (I) (B) LE to knees, max (A) below knees and for (B) feet DRESSING: sitting on side of the bed Upper Extremity: (I) don and doffing hospital gown Lower Extremity: Mod (A) don and doffing (B) socks GROOMING: sitting in chair (I) with brushing hair TOILETING: Device: Urinal Assist: (I) ASSESSMENT/PLAN: Pt is demonstrating increased functional (I). He has slight difficulty with his bed mobility and with (L) LE dressing due to pain. Functionally he can perform his bathing routine with (A) at times. OT did provide pt with adaptive equipment which he was receptive to training and an active participant in todays session. TREATMENT CODES/TIME: [id number], 25 minutes (07:15) Emmy Epstein, OTR/L [facility]
[2020-08-29 07:51] VITALS: BP 108/69; PULSE 77; RESP 18; TEMP 37; O2SAT 98
[2020-08-29] MEDS: Losartan 50 MG TAB 100 MG PO (08:51)
[2020-08-29] MEDS: Triamcinolone 0.1% OINT 15 GM TUBE TP ×2 (08:51→13:55)
[2020-08-29] MEDS: Potassium Chloride 10 MEQ CAPCR PO (08:51)
[2020-08-29] MEDS: Omeprazole 20 MG CAPCR 40 MG PO ×2 (08:51→20:14)
[2020-08-29] MEDS: Vitamins B Comp w/C TAB 1 TAB PO (08:51)
[2020-08-29] MEDS: Docusate Sodium 100 MG CAP PO ×2 (08:51→20:14)
[2020-08-29] MEDS: Apixaban 5 MG TAB PO ×2 (08:51→20:13)
[2020-08-29 13:34] LABS: Bilirubin Negative (Negative); Blood Trace-intact (Negative); Clarity Clear (Clear); Glucose 100 mg/dL (Negative); Ketones Negative (Negative); Leukocyte Esterase Negative (Negative); Nitrite Negative (Negative); Specific Gravity 1.025 (1.005-1.025)
[2020-08-29 13:45] LABS: Bacteria Few HPF (Negative); C & S Indicated? No; Casts 0-2 Coarse Granular LPF (Negative); Crystals Negative HPF (Negative); Epithelial Cells Rare HPF (Negative); Mucus Moderate (Negative); RBC 0-2 HPF (0-2)
--- NOTE | 2020-08-29 13:48 | PT.INTREAT ---
Date of service: 08/29/20 Time of Service: 13:48 PT Notes Visit Reasons: LEFT FEMUR FRACTURE 08/29/2020 SUBJECTIVE: Pt indicating some hip discomfort with movement as he rubs the lateral side of his hip. His daughter is present today and assists with communication. She notes he needs to be independent in and out of bed so she does not have to lift on him due to her own medical problems. OBJECTIVE: Pt seen in AM and PM for PT sessions. TRANSFERS Sit to stand: I Stand to sit: I Sit to supine: I with HOB flat and without use of hand rails Supine to sit: I GAIT Device: FWW Weight bearing: AT L Assist: S Distance: 100' in AM, 100' in PM Deviation. No rest breaks required today THEREX: Seated ROM and light strengthening performed to his tolerance. ASSESSMENT: Tolerates in and out of bed independently today without use of hand rails or elevated bed. He does complain of hip discomfort when performing this transfer. Ambulates well with FWW without LOB or gait deviations. He will require FWW for home upon discharge. PLAN: Continue per POC. Session # 1: 20 minutes [id number] Session # 2: 25 minutes [id number] Melida Easley PTA Clinic location: [facility] [place], [place]
[2020-08-29] MEDS: Acetaminophen 325 MG TAB 650 MG PO ×2 (13:55→18:11)
[2020-08-29 15:23] VITALS: BP 101/57; PULSE 62; RESP 17; TEMP 36.7; O2SAT 98
[2020-08-29] MEDS: Simvastatin 40 MG TAB PO (21:16)
[2020-08-29 23:42] VITALS: BP 108/67; PULSE 67; RESP 18; TEMP 36.1; O2SAT 97
[2020-08-30 07:19] VITALS: BP 124/74; PULSE 78; RESP 20; TEMP 37.1; O2SAT 97
--- NOTE | 2020-08-30 08:06 | OTTR_ITS ---
Date of service: 08/30/20 Time of Service: 07:40 Occupational Therapy Notes Occupational Therapy Inpatient Treatment Note Date: 08/30/20 PRECAUTIONS: Fall, Standard, DNR/DNI SUBJECTIVE: Pt was sitting in chair when OT arrived. He was agreeable to OT session and agreeable to performance of his ADLS. OBJECTIVE: PAIN: c/o pain in (L) hip BATHING: sitting in chair with max (A) set up/clean up Upper Body: (I) washing face, (B) UE and abdomen, min (A) hair Lower Body: (I) (B) LE to knees, max (A) below knees and for (B) feet, (I) marlena area DRESSING: sitting in chair Upper Extremity: (I) don and doffing [facility] gown Lower Extremity: Mod (A) don and doffing (B) socks GROOMING: sitting in chair (I) with brushing hair TOILETING: Device: Urinal Assist: (I) ASSESSMENT/PLAN: Pt is demonstrating increased functional (I). He has difficulty with LE dressing and bathing d/t pain but is tolerating his ADLs well. Pt states that he is unsure when he will be going home but thinks soon. TREATMENT CODES/TIME: [id number], 25 minutes (07:40) BO [facility]
[2020-08-30] MEDS: Potassium Chloride 10 MEQ CAPCR PO (08:18)
[2020-08-30] MEDS: Docusate Sodium 100 MG CAP PO (08:18)
[2020-08-30] MEDS: Vitamins B Comp w/C TAB 1 TAB PO (08:18)
[2020-08-30] MEDS: Apixaban 5 MG TAB PO (08:19)
[2020-08-30] MEDS: Losartan 50 MG TAB 100 MG PO (08:19)
[2020-08-30] MEDS: Omeprazole 20 MG CAPCR 40 MG PO (08:19)
[2020-08-30] MEDS: Triamcinolone 0.1% OINT 15 GM TUBE TP ×2 (08:20→14:48)
--- NOTE | 2020-08-30 09:27 | INDS_ITS ---
Date of service: 08/30/20 Time of Service: 09:27 PT Notes Visit Reasons: LEFT FEMUR FRACTURE Physical Therapy Swing Bed Level 1 Discharge Summary Date: 08/30/20 Dates of service: 08/27/2020 through 08/30/2020 Referring Doctor: Vesna Alcantara NP PT Orders: PT CONSULT: Eval/Treat Precautions: Standard. WBAT on L LE. Verbally and hearing impaired. Posterolateral hip precautions. Patient Profile/Admitting Diagnosis: Mich convered to swing bed level 1 as of 08/26/2020 for continued rehabilitation. He 80 year old male S/P L posterior hemiarthroplasty on postoperative day 3 as a result of mechanical fall. PMHX: Medical History (Updated 08/22/20 @ 18:38 by Adrian Mclean MD) Benign hypertension Deaf Epiglottitis Hypercholesterolemia occluded carotid artery Peripheral vascular disease Surgical History Ear surgery from records, left or right not noted, no date.HE ORIF of supercondylar fx of the R femur (05/25/88) removal of compression screw and side plate from right femur (09/16/91) Right carotid endarterectomy Social History/Home Situation: Lives alone, functioned independently with a supportive daughter near by. His home is on one level, with 3 stairs to enter with rail. He is deaf mute, utilizes modified sign language to communicate with his family. Equipment Owned/DME: [facility] Subjective: Agreeable to PT consult. Did not express any bodily indication of increased pain in the left hip with today's session activities. Objective: General Observation: Seated on reclining chair. Mepilex Ag over posterolateral surgical incision. Mental Status: Alert and oriented x 4. Deaf and mute. Pain: None expressed. ROM: Right Upper Extremity: WFL Left Upper Extremity: WFL Right Lower Extremity: WFL Left Lower Extremity: Limited secondary to pain. Motion observed with transfers at 100* hip flexion, abduction 10*, avoids motion otherwise. In standing lack full extension due to pain of about 20* hip ext. L knee 0-90*, pain with movement. Ankle WNL Strength: Right Upper Extremity: WNL Left Upper Extremity: WNL Right Lower Extremity: WNL Left Lower Extremity: Grossly 3-/5 the left hip. 4-/5 in the left knee and ankle Sensation/palpation: Intact as to pain in B LE Bed Mobility/Transfers: Sit to stand independent Stand to sit independent Bed to chair independent Chair to bed independent Gait: Patient was able to complete 250 feet on level surface ambulation using a front wheeled walker with WBAT on the left LE requiring only supervision assist. Minimal antalgic gait noted towards the end of activity. THERA EX: Patient demonstrates good mastery of seated level exercises consisting of L AQ's x15, seated hip flexion x15, seated hip abduction x15, and ankle DF/PF x20 without observable increase in pain level. Balance: Static Sitting: Good Dynamic Sitting: Good Static Standing: Fair Dynamic Standing: Fair Assessment: Patient demonstrates significant clinical improvement with skilled services during this episode of care. He will continue to benefit from home health physical therapy services in order to facilitate a smooth transition to home, reduce fall risk, and ensure continued caregiver training at home. Patient continues to present with clinical signs and symptoms consistent with current/admitting diagnoses that have resulted to mobility limitations, gait instability, generalized weakness, and impairment of motor control as demonstrated by the following impairment level findings: 1. Decreased strength to B LE major muscle groups 2. Impaired sitting/standing balance 3. Impaired activity tolerance 4. Limitation of joint range of motion in L hip Impairments are continuing to contribute to the following functional limitations: 1. Dependent bed mobility skills 2. Increased dependence with transfers 3. Inability to safely ambulate without assistive device and physical assistance 4. Increase completion time for mobility ADL performance 5. Increased fall risk 6. Inability to negotiate steps alone safely Goals X1 week 1. Supine-Sit independent MET 2. Sit-Supine independent MET 3. Sit-Stand independent MET 4. Stand-Sit independent MET 5. Bed-Chair independent MET 6. Chair-Bed independent MET 7. Independent gait on level surface with use of least restrictive device for at least 300 feet without report of pain nor dyspnea NOT MET 8. Independent stair negotiation while holding onto bilateral rails for at least 10 steps without report of pain nor dyspnea NOT MET 9. Independent with home exercise program NOT MET 10. Good static and dynamic standing balance/tolerance NOT MET DISCHARGE RECOMMENDATIONS: Home with 24/7 family support. We will need the use of a front wheeled walker for maximized mobility ADL performance at home. Patient will benefit from home health PT services in order to progress mobility level using least restrictive assistive ambulatory device, assess home safety, identify additional equipment needs, and establish a functional maintenance program that will increase ability of patient to remain at home. Outpatient PT if transportation allows. TREATMENT CODE/TIME: 01936 x 28 minutes beginning at 9:27 AM. Thank you for the opportunity to participate in the care of this patient. Jeanie Shore PT, DPT, CLT [facility] [place], [place]
--- NOTE | 2020-08-30 13:03 | DSE_ITS ---
DS: Diagnosis Discharge Diagnosis (1) Hip fracture: Status: Acute (2) Displaced fracture of left femoral neck: Status: Acute Discharge Plan Disposition Patient Disposition: HOME W/HOME HEALTH SERVICE Condition: Good Discharge Details Reason For Visit: LEFT FEMUR FRACTURE Admit Date/Time: 08/26/20 13:10 Admit Provider: Santana Perdomo Attending Provider: Santana Perdomo Primary Care Provider: Oralia King V Hospital Course Hospital Course: 80 y.o male that is a deaf mute, he is able to communicate via his daughter presented to [facility] on 08/22 after sustaining a mechanical fall off a ladder landing on his left side. In the ED he was found to have a femoral neck fx. He is on a DOAC for AF, he was taken off 48 hours prior to OR. Left posterior hip press fit hemiarthroplasty was preformed on 08/24. Patient has been doing well postoperatively. His daughter would like him to be able to stand up on his home prior to going home. He is able to stand with assistance therefore would benefit from PT. He is being transitioned to for PT. He denies CP, SOB, N/V. He worked well with PT/OT and was tolerating in and out of bed independently without use of hand rails or elevated bed. He ambulates well with a front wheeled walker without loss of balance or gait deviations. He will dc to home with home health nursing, PT/OT. PCP follow up in 1-2 weeks. Orthopedic follow up per their recommendations. Home Meds and New Rx's Prescriptions: Continued simvastatin [Zocor] 40 MG tablet 40 mg PO HS Qty: 1 RF: 0 triamcinolone acetonide 80 GM ointment 30 gm Topical TID PRNRF: 0 Eliquis 5 MG tablet 5 mg PO BID Qty: 60 RF: 0 omeprazole 40 MG capsule,delayed release(DR/EC) 40 mg PO BID RF: 0 ipratropium-albuterol 0.5 mg-3 mg(2.5 mg base)/3 mL Solution For Nebulization 3 ml INHALATION QID PRNRF: 0 triamcinolone acetonide 0.1 % Ointment 1 applic TOPICAL TID RF: 0 losartan 100 mg Tablet 100 mg PO DAILY RF: 0 vitamin B complex [Vitamins B Complex] Capsule 1 cap PO DAILY RF: 0 potassium chloride [Klor-Con M20] 20 MEQ tablet,ER particles/crystals 10 meq PO DAILY RF: 0 albuterol sulfate [Ventolin HFA] 90 mcg/actuation Hfa Aerosol Inhaler See Rx Instructions .ROUTE .COMPLEX PRNRF: 0 Discharge Instructions Activity:: As tolerated on left /FWW Equipment/Supplies:: No Equipment Needed Diet:: Heart Healthy Discharge Orders Discharge Orders: Discharge Order (Routine); Ordered 08/30/20 Ordered By: Santana Perdomo DS: Summary Status at Discharge Functional status at discharge: uses cane/walker Overall status at discharge: patient is progressing back to baseline Mental Status: mental status grossly normal Speech and Movement: speech and movement normal Mood: congruent mood Affect: normal affect Exam Const General: cooperative and no acute distress Nutritional Appearance: average body habitus Orientation: alert Resp Effort & Inspection: normal respiratory effort Auscultation: clear to auscultation bilaterally Cardio Rate: regular rate Rhythm: regular rhythm Heart Sounds: S1 normal and S2 normal GI Palpation: soft and nontender Skin General skin exam: no rashes or lesions noted Other: surgical incision intact Extrem General: no pedal edema and no calf tenderness Psych Mental Status: mental status grossly normal Speech and Movement: speech and movement normal Mood: congruent mood Affect: normal affect DS: Data Vitals/I&O Vitals and I&O: Vital Signs Temperature 37.1 C 08/30/20 07:19 Temperature Source Tympanic 08/30/20 07:19 Pulse 78 08/30/20 07:19 Pulse Rhythm Irregular 08/30/20 08:20 Respiratory Rate 20 08/30/20 07:19 Respiratory Effort Non-Labored 08/30/20 08:20 Respiratory Depth Normal 08/30/20 08:20 Respiratory Pattern Normal 08/30/20 08:20 Blood Pressure 124/74 08/30/20 07:19 Pulse Oximetry 97 08/30/20 07:19 Oxygen Delivery Method Room Air 08/30/20 07:19 Oxygen Flow Rate 0 08/30/20 07:19 Pain Level 4 08/30/20 07:19 Intake & Output 08/29/20 08/30/20 08/30/20 23:59 11:59 23:59 Intake Total 720 / 720 320 / 320 Output Total 400 / 400 350 / 350 Balance 320 / 320 -30 / -30 Intake: Oral 720 / 720 320 / 320 Output: Urine 400 / 400 350 / 350 Other: Urine Color Yellow Pale Urine Appearance Clear Clear Urine Odor None Comment I collected the urine to bring down to lab. 13:23. Stool Size Smear Moderate Stool Characteristics Soft Liquid Brown Voiding Methods Urinal Urinal Data Completed and Pending Labs on day of discharge: Labs from last 24 hours 08/29/20 13:26 Urine Color Princess Urine Clarity Clear Urine pH 6.0 Ur Specific Grundy 1.025 Urine Protein 30 H Urine Ketones Negative Urine Blood Trace-intact H Urine Nitrite Negative Urine Bilirubin Negative Urine Urobilinogen 2.0 H Ur Leukocyte Esterase Negative Urine RBC 0-2 Urine WBC 3-5 Ur Epithelial Cells Rare Urine Crystals Negative Urine Bacteria Few Urine Casts 0-2 coarse granular Urine Mucus Moderate Ur Culture Indicated? No Urine Glucose 100 PFSH Medical History Benign hypertension Deaf Epiglottitis Hypercholesterolemia occluded carotid artery Peripheral vascular disease Surgical History ear surgery from records, left or right not noted, no date.HE ORIF of supercondylar fx of the R femur (05/25/88) removal of compression screw and side plate from right femur (09/16/91) Right carotid endarterectomy from records, no date.HE Social History Smoking/Tobacco Use Status: Never Smoking risk assessment performed?: Yes Alcohol Intake: never Drug use: Never Substance use type: does not use Do you feel safe at home: Yes Do you feel safe in your relationship?: Yes
--- NOTE | 2020-08-30 13:28 | PDOC.CMDIS ---
- If Service Date Differs Date of service: 08/30/20 Time of Service: 13:28 LACE Index Scoring Tool - Questions: Length of Stay (in days): 7 - 13 Acuity (Admit via E.D.?): Yes E.D. Visits: 1 - Answers: Total Score: 9 Risk of Readmission: Low Risk Care Management Discharge Reason for Hospitalization: Fractured Hip repaired transitioned to [facility] for PT/OT being discharged home today with new home health PT/OT. Discharge Plan: Mich is discharged home today with his daughter and new home health services for PT/OT. He will follow up with Orthopedics and directed. He will be provided a new FWW his daughter was able to obtain all his other equipment. CM contacted his daughter and reviewed plan for discharge with PT, and provider. CM contacted Home Health and notified of discharge. Patient/Family Education Needs: Discharge plan reviewed with Mich's daughter primary nurse will review discharge instructions and follow up plan. Services Needed at Discharge: Home Health Care Services, Occupational Therapy, Physical Therapy
--- NOTE | 2020-08-30 13:34 | PDOC.HHF2F ---
Home Health Certification Home Health Certification: 1. Encounter Date and Reason I certify that TRAE FONSECA was seen by Santana Perdomo MD on 08/30/20 and that I had a [id number] encounter with this patient that meets the physician face to face encounter requirements. 2. Clinical Findings Supporting Skilled Need and Homebound Status I certify that home health services are medically necessary, include either intermittent longterm and/or physical/speech therapy, and that this patient is homebound in that absences from the home require considerable and taxing effort and are infrequent or of short duration, or are attributable to the need to receive medical care. [X] (a) Attached documentation from encounter provides clinical findings supporting skilled need and homebound status (including what assistance patient requires to leave the home). The encounter with the patient was in whole, or in part, for the following medical condition, which is the primary reason for home health care: LEFT FEMUR FRACTURE Retirement: Monitor post-op status / hip repair and surgical wound assessment. Physical Therapy: Occuptation Therapy: Therapies for ongoing strengthening and conditioning. Safety evaluation of home environment. Speech Therapy: Homebound: 3. Certification and Authentication I certify that I composed the above information based on my clinical judgement relating to this patient's medical condition and, if applicable, clinical findings communicated to me by the NPP or inpatient physician who performed the Home Health Referral. All further orders will be obtained through (Community Based Physician - PCP)
--- NOTE | 2020-08-30 13:56 | W.PM.PROGNOT ---
Date of Service Date of service: 08/30/20 Time of Service: 12:35 Assessment and Plan Assessment and plan (1) Displaced fracture of left femoral neck: Status: Acute Assessment and plan: Mich is an 80 year old male s/p Left posterior hip press fit hemiarthroplasty 08/24/2020 Mepliex dressing changed today Pain is well controlled Continue Physical therapy: Weightbearing as tolerated with assist device. Avoid deep hip flexion and strenuous abduction/external rotation if possible for about 2 months. No abduction pillow necessary. 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 Follow-up with Dr. Blancas outpatient [facility] in 2 to 3 weeks?Appointment confirmed Plan discussed with patients daughter. Subjective Subjective Interval history since last seen: Mich is an 80 year old male s/p left posterior hip press fit hemiarthroplasty 08/24/2020. He reports discomfort and swelling about his left knee but denies pain about his left hip. He is moving well with no acute concerns. Denies numbness, tingling, SOB, or NVD. Exam Const General: cooperative, healthy appearing and comfortable Nutritional Appearance: average body habitus Orientation: alert and awake Resp Effort & Inspection: normal respiratory effort, no audible wheezes, no grunting, not labored and no nasal flaring Skin Other: Left Hip Posterior surgical incision well approximated without purlent drainage, erythema, rashes or lesions. Neuro General: patient alert, patient awake and moves all extremities Speech: speech normal Extrem Other: Left hip Inspection: resolving edema and ecchymosis about the left hip extending distally to left knee without effusion, wounds, rashes or lesions. Actively flexes the hip and can resist slight pressure to flexion. Actively can adduct and abduct the left leg with slight limitation due to weakness Passively full, painless, ROM Psych Appearance: grossly normal Mental Status: mental status grossly normal Speech and Movement: speech and movement normal Affect: normal affect Attitude: cooperative Thought Process: normal Thought Content: normal Insight: insight good Judgment: judgment good Objective Last Vital Signs Temp 98.8 F 08/30/20 07:19 Pulse 78 08/30/20 07:19 Resp 20 08/30/20 07:19 BP 124/74 08/30/20 07:19 Pulse Ox 97 08/30/20 07:19
--- NOTE | 2020-08-31 07:21 | OT.INDS ---
Date of service: 08/31/20 Time of Service: 07:21 Occupational Therapy Notes Occupational Therapy Inpatient Discharge Summary Date: 08/31/20 Dates of Service: 08/28/20-08/31/20 Referring Doctor:Santana Perdomo MD OT Orders: Non Urgent Eval and Treat Precautions: Fall, standard, DNR/DNI, hip precautions *This document serves as a summary of care, no skilled OT services were provided for this documentation* PATIENT PROFILE/ADMITTING DIAGNOSIS: Pt is an 80 year old male who is currently under [facility] Bed 1 rehabilitation status with a dx of S/P L posterior hemiarthroplasty from a mechanical fall. Past Medical History: Medical History (Updated 08/22/20 @ 18:38 by Adrian Mclean MD) Benign hypertension Deaf Epiglottitis Hypercholesterolemia occluded carotid artery Peripheral vascular disease Surgical History Ear surgery from records, left or right not noted, no date.HE ORIF of supercondylar fx of the R femur (05/25/88) removal of compression screw and side plate from right femur (09/16/91) Right carotid endarterectomy Social History/Home Situation: Pt lives in a private home alone and has a supportive daughter who lives near by. He is functionally (I) with his ADL routines pre pt report. It is unclear for OT to determine how much support pt receives at baseline level of function. Equipment owned/DME: FWW SUBJECTIVE: NT OBJECTIVE: ROM: RUE AROM WFL L UE AROM WFL STRENGTH: RUE 4/5 throughout globally LUE 4/5 throughout globally FUNCTIONAL MOBILITY/ADLS: BATHING sitting in chair with max (A) Set up/clean up Bathing UE With visual cues for communication (I) face, (B) UE and abdomen Bathing LE (I) marlena area and (R) LE to knee, max (A) (L) LE DRESSING sitting in chair Dressing UE (I) don and doffing [facility] gown Dressing LE Mod (A) don and doffing (B) socks GROOMING Pt denies brushing teeth/oral hygiene as he has no teeth, (I) with brushing hair in seated position. TOILETING on commode and with urinal (I) EATING sitting in chair (I) BALANCE: Static sitting Normal Dynamic Sitting Normal ASSESSMENT: Patient is a 80-year-old male referred to occupational therapy services with diagnosis of S/P L posterior hemiarthroplasty. Pt was seen for 3 skilled OT sessions, he was able to demonstrate increased (I) in his ADLs and his pain was better managed allowing him to be more functionally (I). Pt was discharged home on 08/30/20. GOALS 1. Transfers (I) 2. Dressing Min (A) LE, (I) UE- met for UE, requires (A) for LE 3. Bathing (I)- partially met 4. Toileting (I)- met 5. Eating (I)- met PLAN OF CARE/TREATMENT PLAN: Discharge from skilled OT services. Pt was discharged and medically cleared per MD on 08/30/20 DISCHARGE RECOMMENDATIONS Based on pts current condition, assessment of functional limitations and impairments, OT recommends that pt return home with family support and care giving. TREATMENT TIME/MINUTES/CODES N/A Emmy Epstein, OTR/L [facility]
== END 2020-08-30 14:56 | disposition home health service (06) | DRG 561 ==
PROVIDERS: Admitting Provider Family Medicine; PCP Family Medicine; Visit Provider Family Medicine
DX: S72.002D Fracture of unspecified part of neck of left femur, subsequent encounter for closed fracture with routine healing (principal); W19.XXXD Unspecified fall, subsequent encounter; I10 Essential (primary) hypertension; H91.3 Deaf nonspeaking, not elsewhere classified; E78.00 Pure hypercholesterolemia, unspecified; I73.9 Peripheral vascular disease, unspecified; I48.91 Unspecified atrial fibrillation
CPT/HCPCS: 90662; 97110; 97162; 97165; 97530; 97535; 99232; 99306; 99315; 81003; 81015

== ENCOUNTER 2020-09-11 | Outpatient (CLI) | payer MEDICARE, SELFPAY ==
--- NOTE | 2020-09-11 11:15 | DI.RAD_ITS ---
EXAM: XR HIP LT AP LAT ONLY INDICATION: follow up. COMPARISON: CR XR HIP LT COMPLETE AP PELVIS from 08/24/2020 TECHNIQUE: 2D digital imaging was performed. FINDINGS: There has been no change in the alignment of the left hip prosthesis or appearance of the surrounding bone. Surgical clips are again noted in the left lower pelvis. Vascular calcifications are noted. DATA REPOSITORY: RADIATION DOSE DELIVERED:
== END 2020-09-11 00:20 ==
PROVIDERS: PCP Family Medicine; Referring Provider Family Medicine; Visit Provider Physician Assistant Surgical
DX: Z96.642 Presence of left artificial hip joint (principal); S72.002D Fracture of unspecified part of neck of left femur, subsequent encounter for closed fracture with routine healing; X58.XXXD Exposure to other specified factors, subsequent encounter
CPT/HCPCS: 73502

== ENCOUNTER 2020-10-10 11:08 | Emergency (ER) | payer MEDICARE, SELFPAY ==
[2020-10-10] VITALS (56 sets, daily range): BP systolic 81–120; BP diastolic 39–80; PULSE 60–111; RESP 15–32; TEMP 37–37.1; O2SAT 95–99
--- NOTE | 2020-10-10 11:30 | DI.CT_ITS ---
EXAM: CT CHEST/ABD/PEL WO CLINICAL HISTORY: cough, sob, vomiting, genital pain/testicular pain. TECHNIQUE: Imaging Protocol: Axial computed tomography images with coronal and sagittal reformatted images were created and reviewed CONTRAST MATERIAL: Noncontrast COMPARISON: CT CHEST FOR PULMONARY EMBOLUS from 01/20/2016 CT CHEST FOR PULMONARY EMBOLUS from 01/20/[address] CHEST W from 11/27/[address] CHEST W from 11/27/2018 CR,XR XR CHEST 1V IN DI DEPT from 08/22/2020 CR,XR XR CHEST 1V IN DI DEPT from 08/22/2020 CR XR SHOULDER LT COMPLETE 2+V from 08/23/[address] LOWER EXTREMITY LT WO from 08/23/[address] LOWER EXTREMITY LT WO from 08/23/2020 CR XR SHOULDER LT COMPLETE 2+V from 08/23/2020 FINDINGS: CHEST: Tracheobronchial tree: Patent where visualized. Mediastinum and Corinne: No dominant adenopathy or fluid collection. Pulmonary parenchyma: Limited evaluation due to respiratory motion. Dense area of consolidation in t he right middle lobe. Pleura: No pneumothorax. Tiny right pleural effusion. Lymph nodes: Within normal limits. Aorta: Thoracic portion non-dilated. Moderate calcification. Heart: Four-chamber enlargement. Heavily calcified coronary arteries. Bones: Degenerative disc changes and thoracic kyphosis Soft tissues: Gynecomastia, left greater than right. Moderate size hiatal hernia. Fluid in the dist al esophagus. ABDOMEN: Exam is somewhat limited by patient motion. Liver: Normal density. No measurable mass. Gallbladder and biliary tract: No radiodense calculus or dilation. Pancreas: Normal density, no abnormal calcifications or inflammatory process. Spleen: Normal. Kidneys: Normal size, contour and axis. No radiodense stones or obstructive uropathy. No masses seen. Right renal cyst. Adrenal glands: No masses seen. Aorta: Heavily calcified, ectatic.. Aneurysm measuring 4 cm in diameter in the mid aorta. Distal ao rtic aneurysm measuring 3 cm. Lymph nodes: Within normal limits. PELVIS: Bladder: Distended, mild wall thickening. No focal mass or calcification. Bowel: Normal quantity of stool. Minimal sigmoid diverticulosis. No obstruction or bowel wall thick ening. Peritoneal cavity: No ascites, collection or mesenteric inflammatory response. Bones: Left hip prosthesis causes artifact in the pelvis which partially obscures the bladder and pro state. Degenerative disc changes and facet degenerative changes. Reproductive organs: Within normal limits. IMPRESSION: Dense consolidation in the right middle lobe. Atherosclerotic changes of the aorta. 4 centimeter abdominal aortic aneurysm RADIATION DOSE DELIVERED: 1,100.88mGy.cm Total DLP DATA REPOSITORY: All CT scans at this facility are submitted to the National Radiology Data Registry (NRDR) Dose Index Registry (DIR) with the [employer] ([employer]). RADIATION OPTIMIZATION: All CT scans at this facility use at least one of these dose optimization te chniques: automated exposure control; mA and/or kV adjustment per patient size (includes targeted exa ms where dose is matched to clinical indication); or iterative reconstruction.
--- NOTE | 2020-10-10 11:30 | DI.CT_ITS ---
EXAM: CT HEAD WO CLINICAL HISTORY: fall, hit head, on thinners. TECHNIQUE: Imaging Protocol: Axial computed tomography images with coronal and sagittal reformatted images were created and reviewed COMPARISON: No exams were available for comparison FINDINGS: Ventricles and Extra axial spaces: Normal in size and morphology for the patient's age. Hemorrhage: None. Cerebral parenchyma: Minimal white matter changes of small vessel disease. Midline shift: None. Brainstem/Cerebellum: Normal. Calvarium: Normal. Visualized Paranasal sinuses/Mastoids: Clear. Soft Tissues: Unremarkable. IMPRESSION: No acute intracranial process. RADIATION DOSE DELIVERED: 769.8mGy.cm Total DLP DATA REPOSITORY: All CT scans at this facility are submitted to the National Radiology Data Registry (NRDR) Dose Index Registry (DIR) with the [employer] (ACR). RADIATION OPTIMIZATION: All CT scans at this facility use at least one of these dose optimization te chniques: automated exposure control; mA and/or kV adjustment per patient size (includes targeted exa ms where dose is matched to clinical indication); or iterative reconstruction.
[2020-10-10 11:53] LABS: Source Nasopharynx
[2020-10-10 11:56] LABS: Abs Immature Grans 0.12 10^3/uL (0.0-0.06); Absolute Basophil Count 0.01 10^3/uL (0.0-0.2); Absolute Lymphocyte Count 0.62 10^3/uL (1.2-3.4); Absolute Neutrophil Count 11.73 10^3/uL (1.2-6.7); Basophils % 0.1; HCT 30.3 % (40.0-50.0); HGB 10.1 g/dL (13.5-17.5); Immature Grans % 0.9; Lymphocytes % 4.8; MCH 30.8 pg (27.0-33.0); MCHC 33.3 % (32.0-36.0); MCV 92.4 fL (80-95); MPV 12.2 fL (8.0-11.0); Monocytes % 3.1; Neutrophils % 91.1; Nucleated RBC 0 %; Platelet Count 164 10^3/uL (130-400); RBC 3.28 10^6/uL (4.36-5.78); RDW 13.7 % (11.8-14.1); RDW-SD 46.7 fL; WBC 12.88 10^3/uL (4.4-10.8)
[2020-10-10] MEDS: ACETAMINOPHEN 1,000 MG/100 ML BTL 400 MG IVPB (12:05)
[2020-10-10] MEDS: Normal Saline 1,000 ML 1000 ML IV ×2 (12:09→14:45)
[2020-10-10 12:13] LABS: INR 1.2 (0.9-1.1); PTT Activated 32.4 sec (21.0-27.5); Prothrombin Time 12.3 sec (9.3-11.0)
[2020-10-10 12:24] LABS: ALT 50 U/L (16-63); AST 61 U/L (15-37); Albumin 2.3 g/dL (3.4-5.0); Alkaline Phosphatase 45 U/L (46-116); Anion Gap 7.7 mmol/L (3-11); BUN 33 mg/dL (7-18); Bilirubin, Total 0.5 mg/dL (0.2-1.0); CO2 26.3 mmol/L (21.0-32.0); CREATININE 1.21 mg/dL (0.70-1.30); Calcium 9.1 mg/dL (8.5-10.1); Chloride 91 mmol/L (98-107); Estimated GFR 57.41 (mL/min/1.73m2); Glucose 153 mg/dL (74-106); Lipase 90 U/L (73-393); Potassium 3.7 mmol/L (3.5-5.1); Sodium 125 mmol/L (136-145); Total Protein 7.1 g/dL (6.4-8.2)
--- NOTE | 2020-10-10 12:30 | RT.EKG_ITS ---
APPROVED REPORT Exam: Resting ECG Patient Location: E HR:92 bpm ECG Measurements Heart Rate 92 AXIS W[place] [id number] P [id number] QRSd 147 QRS -17 QT 414 T -24 QTc 513 Conclusion Atrial fibrillation...? atrial activity Ventricular premature complex...V complex w/ short R-R interval Right bundle branch block...QRSd>120, terminal axis(90,270) Physician: No stemi, negative for scarbossa. unchaned from 08/22/20 Inferior infarct, age indeterminate...Q>35mS, T neg, II III aVF
[2020-10-10 12:34] LABS: COVID-19 PCR Negative (Negative); Influenza A PCR Negative (Negative); Influenza B PCR Negative (Negative); RSV PCR Negative (Negative)
[2020-10-10 12:36] LABS: Troponin I 0.82 ng/mL (<0.06)
--- NOTE | 2020-10-10 12:50 | W.ED.GENAD ---
Discharge Plan Disposition Patient Disposition: MARIANELA WILCOX ([facility]) Condition: Critical Discharge Details Clinical Impression: CAP (community acquired pneumonia), Sepsis, Acute UTI, Hypotensive episode, Septic shock, Non-ST elevation [place] (NSTEMI) Primary Care Provider: Oralia King V ED Provider: Raphael Gonzalez Home Meds and New Rx's Prescriptions: No Action simvastatin [Zocor] 40 MG tablet 40 mg PO HS Qty: 1 RF: 0 triamcinolone acetonide 80 GM ointment 30 g Topical TID PRNRF: 0 Eliquis 5 MG tablet 5 mg PO BID Qty: 60 RF: 0 omeprazole 40 MG capsule,delayed release(DR/EC) 40 mg PO BID RF: 0 ipratropium-albuterol 0.5 mg-3 mg(2.5 mg base)/3 mL Solution For Nebulization 3 ml INHALATION QID PRNRF: 0 triamcinolone acetonide 0.1 % Ointment 1 applic TOPICAL TID RF: 0 losartan 100 mg Tablet 100 mg PO DAILY RF: 0 vitamin B complex [Vitamins B Complex] Capsule 1 cap PO DAILY RF: 0 potassium chloride [Klor-Con M20] 20 MEQ tablet,ER particles/crystals 10 meq PO DAILY RF: 0 albuterol sulfate [Ventolin HFA] 90 mcg/actuation Hfa Aerosol Inhaler See Rx Instructions .ROUTE .COMPLEX PRNRF: 0 Medical Decision Making Upon my evaluation, this patient had a high probability of imminent or life-threatening deterioration, which required my direct attention, intervention, and personal management. I have personally provided 45 minutes of critical care time exclusive of time spent on separately billable procedures. Time includes review of laboratory data, radiology results, discussion with consultants, and monitoring for potential decompensation. Interventions were performed as documented. 80-year-old male with a past medical history of being deaf, high cholesterol, hypertension, peripheral vascular disease, Eliquis use, who presents today for multiple various concerning etiologies. He is with his daughter who is both his medical power of environmental attorney and food prep worker with sign language. She states that 1 week ago the patient developed mild fever of 101, he had a few episodes of vomiting, this eventually resolved his fever went away after about 48 hours, however since then he has not been eating and drinking well at all, he has only been taking sips of water and eating no solid foods. He has had no further vomiting or diarrhea. However he became notably unsteady over the next few days, and did fall and hit his head 2 to 3 days ago. Over the last 24 hours she has become notably weak, fatigued, complained of generalized abdominal pain, mild testicular pain, difficulty urinating, continued unsteadiness, frequency of urination, of note he did have hip surgery in early August, at that time the daughter states that they did place a Perez, and had some blood and since then he has had pain in the genital region, and mild difficulty with urination.. He denies any chest pain. He does admit to shortness of breath with associated cough. No other complaints at this time. Physical exam demonstrates dry mucous membranes, rhonchi and rales in his right lung henry, small bruise over his anterior forehead, no midline cervical spine tenderness. Mild generalized abdominal tenderness, mild bilateral testicular tenderness. Difficult to ascertain a cremasteric reflex, however no clinical evidence of cellulitis or infection down there. Differential is notably broad, but few things that are certainly of concern are brain bleed with his fall with him being on Eliquis, pneumonia with his rhonchorous breath sounds, dehydration with his lack of oral intake, acute abdominal pathology with his mother will complaints. 1:53 PM Patient's laboratory work-up was returned, patient has a mild white count of 12.8, notable left shift, neutrophil predominance, mild lymphopenia, lactate is 2.0, sodium is 125, troponin is elevated at 0.82, EKG shows evidence of right bundle branch block, unchanged, no evidence of STEMI, negative for SCARBOSSA criteria. Urinalysis also demonstrates notable leuk esterase with notable WBC elevation, CT of the chest shows an incidental small 4 cm abdominal aortic aneurysm, no acute abdominal pathology but there is notable dense consolidation in the right middle lobe of the lung. Rapid Covid test and flu test is returned negative. Patient's blood pressure has declined, heart rate remained stable. We will give a second fluid bolus of another liter for total of 2 L, will perform ultrasound to evaluate for IVC status. Suspect that the patient's elevated troponin is secondary to cardiac burden from sepsis. We did reach out to [facility] and upon discussion with their transfer center and [facility] they state that they are currently at capacity and unable to receive any transfers even critical ones at this time. We will reach out to the [facility]. 2:38 PM Patient's blood pressure has declined to the 80s systolic. Heart rate remains in the 90s. Bedside ultrasound demonstrates IVC just under 2 cm, however it shows notable almost total collapse with inspiration. Findings suggestive of continued volume depletion. We will continue to volume resuscitate with an additional liter of fluid. Will monitor closely. If his pressure remains low we will start Levophed through the large-bore peripheral IV. He currently has 3 large-bore IVs, no indication for central line placement currently. I did contact [facility] and discussed the case with Dr. Wilcox, he agrees with the assessment and plan, does recommend Perez placement. Accepts the patient for transfer. I have extensively reviewed the treatment plan with the patient. I have addressed all patient concerns at this time. I have also discussed the plan with the admitting physician and they agree with the current assessment and plan and have agreed to assume responsibility for the patient. All parties demonstrate verbal understanding and agreement with our assessment and plan at this time. 3:36 PM Patient's blood pressure has come up to the 110 systolic on 5 the Levophed after 3 L of normal saline. Still pending bed availability at [facility]. Of note the daughter states that when she is not near the patient he may get very anxious and recommend that while he is at [facility] if they have any questions or concerns that face-timing with her is one of the best ways to help alleviate his concern and to answer questions. At time of transfer the patient was reassessed and continued to demonstrate No signs of acute respiratory distress requiring intubation, or rapidly declining mental status. The patient is appropriate for transport. FINDINGS: Ventricles and Extra axial spaces: Normal in size and morphology for the patient's age. Hemorrhage: None. Cerebral parenchyma: Minimal white matter changes of small vessel disease. Midline shift: None. Brainstem/Cerebellum: Normal. Calvarium: Normal. Visualized Paranasal sinuses/Mastoids: Clear. Soft Tissues: Unremarkable. IMPRESSION: No acute intracranial process. IMPRESSION: Dense consolidation in the right middle lobe. Atherosclerotic changes of the aorta. 4 centimeter abdominal aortic aneurysm Exam type: diagnostic Indication for exam: hypotension, sepsis Views obtained and pictures saved: subxiphoid view of the IVC as it enters the right atrium on inspiration and exhalation. Diameter was measured approximately 2 cm from the atrial caval junction. Findings and interpretations: all views were adequate. The IVC measures 2cm and collapses >50%indicating the CVP is estimated at 6-10 mmhg. The patient tolerated the procedure well and there were no complications. HPI General Date/Time Provider Initiated Documentation: 10/10/20 11:22. HPI Narrative: 80-year-old male with a past medical history of being deaf, high cholesterol, hypertension, peripheral vascular disease, Eliquis use, who presents today for multiple various concerning etiologies. He is with his daughter who is both his medical power of environmental attorney and food prep worker with sign language. She states that 1 week ago the patient developed mild fever of 101, he had a few episodes of vomiting, this eventually resolved his fever went away after about 48 hours, however since then he has not been eating and drinking well at all, he has only been taking sips of water and eating no solid foods. He has had no further vomiting or diarrhea. However he became notably unsteady over the next few days, and did fall and hit his head 2 to 3 days ago. Over the last 24 hours she has become notably weak, fatigued, complained of generalized abdominal pain, mild testicular pain, difficulty urinating, continued unsteadiness, frequency of urination, of note he did have hip surgery in early August, at that time the daughter states that they did place a Perez, and had some blood and since then he has had pain in the genital region, and mild difficulty with urination.. He denies any chest pain. He does admit to shortness of breath with associated cough. No other complaints at this time. Related Data Home Medications Medication Instructions Recorded Confirmed simvastatin [Zocor] 40 mg PO HS #1 05/26/13 10/10/20 triamcinolone acetonide 30 g TOPICAL TID PRN script 05/26/13 10/10/20 Eliquis 5 mg PO BID #60 tab 11/17/17 10/10/20 omeprazole 40 mg PO BID 12/25/17 10/10/20 albuterol sulfate [Ventolin HFA] See Rx Instructions .ROUTE 08/22/20 10/10/20 .COMPLEX PRN ipratropium-albuterol 3 ml INHALATION QID PRN 08/22/20 10/10/20 losartan 100 mg PO DAILY 08/22/20 10/10/20 potassium chloride [Klor-Con M20] 10 meq PO DAILY 08/22/20 10/10/20 triamcinolone acetonide 1 applic TOPICAL TID 08/22/20 10/10/20 vitamin B complex [Vitamins B 1 cap PO DAILY 08/22/20 10/10/20 Complex] Previous Rx's Medication Instructions Recorded Eliquis 5 mg PO BID #60 tab 11/17/17 Allergies Allergy/AdvReac Type Severity Reaction Status Date / Time lactose Allergy Swelling/Ed Unverified 10/10/20 11:25 juan pablo General Stated Complaint: GenMedical KATHERINE: 2 Review of Systems All systems reviewed & are unremarkable except as noted in HPI and below PFSH Medical History (Updated 10/10/20 @ 14:49 by Raphael Gonzalez DO) Benign hypertension Deaf Epiglottitis Hypercholesterolemia occluded carotid artery Peripheral vascular disease Surgical History ear surgery from records, left or right not noted, no date.HE ORIF of supercondylar fx of the R femur (05/25/88) removal of compression screw and side plate from right femur (09/16/91) Right carotid endarterectomy from records, no date.HE Social History Smoking/Tobacco Use Status: Never Smoking risk assessment performed?: Yes Alcohol Intake: never Drug use: Never Substance use type: does not use Current gender identity: male Do you feel safe at home: Yes Do you feel safe in your relationship?: Yes Exam Narrative Exam Narrative: 1.Const: Well-nourished, Well-developed, appearing stated age 2.Eyes: PERRL, no conjunctival injection, and symmetrical lids. No significant nystagmus that can be appreciated. 3.ENT: Atraumatic external nose and ears. Notably dry MM. Neck: Symmetric, trachea midline, No thyromegaly. No midline cervical spine tenderness 4.CVS: +S1/S2, No murmurs or gallops. Peripheral pulses 2+ and equal in all extremities. Brisk capillary refill in all extremities. 5.RESP: Mild tachypnea, notable rhonchi and crackles in the right lung henry, no wheezes. 6.GI: Soft, Nondistended, No hepatosplenomegaly. No guarding or rebound. Mild generalized abdominal tenderness throughout. Genital exam demonstrates a nontender penis, testicles bilaterally appear mildly tender, difficult to ascertain a cremasteric reflex, however there is no swelling or redness or crepitus that I can appreciate. No evidence of Rich's gangrene. 7.MSK: Normocephalic/Atraumatic, Extremities w/o deformity or ttp No cyanosis or clubbing, Normal movement of all extremities there is no evidence of raccoon eyes, mixon sign, CSF rhinorrhea, mastoid tenderness, cranial crepitus, hemotympanum, exophthalmos, or hyphema. Patient demonstrates intact dentition with no signs of tooth avulsion or fracture, no signs of jaw deformity, no evidence of a LeFort's fracture, with an intact palate, nose and orbital region. There is no evidence of a nasal septal hematoma. No proptosis. Jaw closes symmetrically. Airway is clear. 8.Skin: There is a small bruise just over the nose on the forehead 9.Neuro: process developer II-XII grossly intact. Sensation grossly intact, no focal neurologic deficits. 10.Psych: (AAO) x3. Appropriate mood and affect Course Vital Signs Vital signs: Vital Signs Temperature 37 C 10/10/20 11:16 Pulse 110 H 10/10/20 11:16 Respiratory Rate 32 H 10/10/20 11:16 Blood Pressure 101/80 10/10/20 11:16 Pulse Oximetry 96 10/10/20 11:16 Temperature 37 C 10/10/20 11:16 Temperature Source Temporal Artery Scan 10/10/20 11:16 Pulse 110 H 10/10/20 11:16 Respiratory Rate 32 H 10/10/20 11:16 Respiratory Effort Non-Labored 10/10/20 12:14 Respiratory Depth Normal 10/10/20 12:14 Respiratory Pattern Normal 10/10/20 12:14 Blood Pressure 101/80 10/10/20 11:16 Blood Pressure Position Supine 10/10/20 11:16 Pulse Oximetry 96 10/10/20 11:16 Oxygen Delivery Method Room Air 10/10/20 11:16 Oxygen Flow Rate 0 10/10/20 11:16 Lab/Test Results Lab/Test Results: 10/10/20 12:40 Urine - Voided Urine Culture - Pending 10/10/20 12:05 Blood Blood Culture - Pending 10/10/20 11:45 Blood Blood Culture - Pending Laboratory Tests Range/Units 10/10/20 10/10/20 10/10/20 11:45 11:45 11:45 WBC (4.4-10.8) 10^3/uL 12.88 H RBC (4.36-5.78) 10^6/uL 3.28 L Hgb (13.5-17.5) g/dL 10.1 L Hct (40.0-50.0) % 30.3 L MCV (80-95) fL 92.4 MCH (27.0-33.0) pg 30.8 MCHC (32.0-36.0) % 33.3 RDW (11.8-14.1) % 13.7 Plt Count (130-400) 10^3/uL 164 MPV (8.0-11.0) fL 12.2 H Immature Gran % 0.9 Neutrophils % 91.1 Lymphocytes % 4.8 Monocytes % 3.1 Eosinophils % 0.0 Basophils % 0.1 Nucleated RBC % % 0 Absolute Neutrophils (1.2-6.7) 10^3/uL 11.73 H Absolute Lymphocytes (1.2-3.4) 10^3/uL 0.62 L Absolute Monocytes (0.1-0.8) 10^3/uL 0.40 Absolute Eosinophils (0.0-0.7) 10^3/uL 0.00 Absolute Basophils (0.0-0.2) 10^3/uL 0.01 PT (9.3-11.0) sec INR (0.9-1.1) APTT (21.0-27.5) sec VBG Lactate (0.6-1.4) mmol/L 2.0 H Sodium (136-145) mmol/L 125 L Potassium (3.5-5.1) mmol/L 3.7 Chloride (98-107) mmol/L 91 L Carbon Dioxide (21.0-32.0) mmol/L 26.3 Anion Gap (3-11) mmol/L 7.7 BUN (7-18) mg/dL 33 H Creatinine (0.70-1.30) mg/dL 1.21 Estimated GFR/1.73 m2 (mL/min/1.73m2) 57.41 Glucose (74-106) mg/dL 153 H Calcium (8.5-10.1) mg/dL 9.1 Total Bilirubin (0.2-1.0) mg/dL 0.5 AST (15-37) U/L 61 H ALT (16-63) U/L 50 Alkaline Phosphatase (46-116) U/L 45 L Troponin I (<0.06) ng/mL 0.82 H* Total Protein (6.4-8.2) g/dL 7.1 Albumin (3.4-5.0) g/dL 2.3 L Lipase (73-393) U/L 90 TSH (0.36-3.74) uIU/mL 0.20 L COVID-19 Source SARS-CoV-2 (PCR) (Negative) Influenza Type A (PCR) (Negative) Influenza Type B (PCR) (Negative) RSV (PCR) (Negative) Range/Units 10/10/20 10/10/20 11:45 11:45 WBC (4.4-10.8) 10^3/uL RBC (4.36-5.78) 10^6/uL Hgb (13.5-17.5) g/dL Hct (40.0-50.0) % MCV (80-95) fL MCH (27.0-33.0) pg MCHC (32.0-36.0) % RDW (11.8-14.1) % Plt Count (130-400) 10^3/uL MPV (8.0-11.0) fL Immature Gran % Neutrophils % Lymphocytes % Monocytes % Eosinophils % Basophils % Nucleated RBC % % Absolute Neutrophils (1.2-6.7) 10^3/uL Absolute Lymphocytes (1.2-3.4) 10^3/uL Absolute Monocytes (0.1-0.8) 10^3/uL Absolute Eosinophils (0.0-0.7) 10^3/uL Absolute Basophils (0.0-0.2) 10^3/uL PT (9.3-11.0) sec 12.3 H INR (0.9-1.1) 1.2 H APTT (21.0-27.5) sec 32.4 H VBG Lactate (0.6-1.4) mmol/L Sodium (136-145) mmol/L Potassium (3.5-5.1) mmol/L Chloride (98-107) mmol/L Carbon Dioxide (21.0-32.0) mmol/L Anion Gap (3-11) mmol/L BUN (7-18) mg/dL Creatinine (0.70-1.30) mg/dL Estimated GFR/1.73 m2 (mL/min/1.73m2) Glucose (74-106) mg/dL Calcium (8.5-10.1) mg/dL Total Bilirubin (0.2-1.0) mg/dL AST (15-37) U/L ALT (16-63) U/L Alkaline Phosphatase (46-116) U/L Troponin I (<0.06) ng/mL Total Protein (6.4-8.2) g/dL Albumin (3.4-5.0) g/dL Lipase (73-393) U/L TSH (0.36-3.74) uIU/mL COVID-19 Source Nasopharynx SARS-CoV-2 (PCR) (Negative) Negative Influenza Type A (PCR) (Negative) Negative Influenza Type B (PCR) (Negative) Negative RSV (PCR) (Negative) Negative
[2020-10-10 12:53] LABS: Bilirubin Negative (Negative); Blood Moderate (Negative); Clarity Cloudy (Clear); Glucose Negative (Negative); Ketones Negative (Negative); Leukocyte Esterase Moderate (Negative); Nitrite Negative (Negative); Specific Gravity 1.025 (1.005-1.025); Urobilinogen 0.2 EU/dL (Up TO 0.2); pH 5.5 (5-8)
[2020-10-10 13:03] LABS: WBC >50 HPF (0-5)
[2020-10-10 13:04] LABS: Bacteria Many HPF (Negative); C & S Indicated? C&S Done As Ordered; Casts Negative LPF (Negative); Crystals Negative HPF (Negative); Epithelial Cells Negative HPF (Negative); Mucus Negative (Negative)
[2020-10-10] MEDS: Normal Saline 500 ML IV ×2 (13:15→13:50)
[2020-10-10] MEDS: DOXYCYCLINE 100 MG in Normal Saline 100 ML IVPB (13:43)
[2020-10-10 14:37] LABS: FREE T4 1.45 ng/dL (0.76-1.46)
[2020-10-10] MEDS: PIPERACILLIN/TAZO 3.375 GM in Normal Saline 50 ML IVPB (14:44)
[2020-10-10] MEDS: VANCOMYCIN/WATER (PEG) 1.5 GM/300 ML BAG IVPB (15:16)
[2020-10-10] MEDS: Lidocaine 2% Jelly 6 ML SYR (16:00)
== END 2020-10-10 17:05 | disposition short-term general hospital (02) ==
PROVIDERS: Emergency Provider Student in an Organized Health Care Education/Training Program; PCP Family Medicine
DX: A41.9 Sepsis, unspecified organism (principal); R65.21 Severe sepsis with septic shock; I21.4 Non-ST elevation (NSTEMI) myocardial infarction; J18.8 Other pneumonia, unspecified organism; N39.0 Urinary tract infection, site not specified; B96.20 Unspecified Escherichia coli [E. coli] as the cause of diseases classified elsewhere; H91.3 Deaf nonspeaking, not elsewhere classified; I48.91 Unspecified atrial fibrillation; Z79.01 Long term (current) use of anticoagulants; Z03.818 Encounter for observation for suspected exposure to other biological agents ruled out
CPT/HCPCS: 36415; 71250; 80053; 83690; 87040; 87077; 87637; 93005; 96361; 96365; 96366; 96367; 96375; 99291; 70450; 74176; 81003; 81015; 83605; 84439; 84443; 84484; 85025; 85610; 85730; 87086; 87186; 93010; J0131; J2543